=== PATIENT | male | born 2000 ===

== ENCOUNTER 2020-10-01 01:28 | Emergency (ER) | payer OTHER, SELFPAY ==
--- NOTE | ~2020-10-01 | XR_ITS ---
EXAMINATION: XR FOOT, RIGHT CLINICAL INFORMATION: Pain and swelling status post trauma COMPARISON: None TECHNIQUE: AP, lateral, and oblique views of the right foot. FINDINGS: No fracture or dislocation. Alignment is anatomic. Joint spaces are maintained. Mild soft tissue swelling of the forefoot. XR/XR foot RT min 3V IMPRESSION: Forefoot soft tissue swelling. No fracture or malalignment.
[2020-10-01 02:06] VITALS: BP 152/90; PULSE 87; RESP 18; TEMP 36.9; O2SAT 98; BMI 32.1
[2020-10-01 04:00] VITALS: BP 152/70; PULSE 72; RESP 18; O2SAT 98
--- NOTE | 2020-10-01 04:05 | ED.LOWEXIN ---
HPI - Extremity Injury (Lower) General Chief Complaint: Extremity Injury, Lower Stated Complaint: right foot injury Time Seen by Provider: 10/01/20 04:05 Source: patient Mode of arrival: ambulatory History of Present Illness HPI Narrative: 20-year-old male who states that he reported at package being dropped on his foot, approximately 60 lb on Friday and now reports increased pain with pressure standing as well as with walking. Related Data Allergies Allergy/AdvReac Type Severity Reaction Status Date / Time pollen extracts [POLLEN] Allergy Unknown UNKNOWN Verified 10/01/20 02:05 Review of Systems Review of Systems: pertinent positives and negatives as stated in the HPI and 10 point of systems is otherwise negative. [facility] Past Medical History Source: nursing notes reviewed Social History Social History Advance Directives: No Advance Directives Information Provided: No Physical Exam Vital Signs: Vital Signs: Last Vital Signs Temp 98.4 F 10/01/20 02:06 Pulse 72 10/01/20 04:00 Resp 18 10/01/20 04:00 BP 152/70 H 10/01/20 04:00 Pulse Ox 98 10/01/20 04:00 Body Mass Index 32.1 VITAL SIGNS: Reviewed. GENERAL: Well developed, well nourished, in no acute distress. HEAD: Normocephalic/atraumatic EYES: PERRLA, EOMI LUNGS: Normal breath sounds. No adventitious sounds or accessory muscle use. SpO2<98> CARDIOVASCULAR: Regular rate and rhythm without noted murmurs ABDOMEN: Soft, non-tender, non-distended with bowel sounds. RIGHT FOOT: There is noted soft tissue swelling to the dorsum of the right foot, capillary refill less 3 seconds, palpable DP/PT SKIN: Inspection of the skin reveals no rashes NEUROLOGIC: Alert and oriented x 4. Strength and sensation to light touch were grossly intact x 4. Course Course Course Narrative: 20-year-old male with history and clinical presentation consistent with contusion to the dorsum right hand on review of imaging evidence fracture or dislocation. Patient was provided with an Florentin wrap for compression and discharged home in stable condition with instructions to follow up with his primary care provider. Discharge Plan Discharge Clinical Impression: Contusion of foot, right Patient Disposition: Home, Self-Care Instructions: Contusion in Adults (ED) Additional Instructions: 1. 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 2. Recommend utilizing Tylenol and ibuprofen as needed for pain control. In addition, utilize ice for additional symptom relief. Return to the ER for acute worsening of symptoms. Referrals: Physician,Unknown [Primary Care Provider] - 2 days Interventions: ED Discharge Assessment Last Done: 10/01/20 04:16 Discharge Date/Time: 10/01/20 04:17
--- NOTE | 2020-10-01 04:07 | PC.NURSE ---
Right foot swelling/bruising noted. No fracture identified. Florentin wrap applied to right foot. Preparing for discharge home. Pt ambulating on foot with slight limp, but otherwise steady gait.
== END 2020-10-01 04:17 | disposition home or self-care (01) ==
PROVIDERS: Emergency Provider Student in an Organized Health Care Education/Training Program
DX: S90.31XA Contusion of right foot, initial encounter (principal); W20.8XXA Other cause of strike by thrown, projected or falling object, initial encounter; Y93.9 Activity, unspecified; Y92.9 Unspecified place or not applicable; Y99.9 Unspecified external cause status
CPT/HCPCS: 73630; 99283; 99284

== ENCOUNTER 2020-10-03 17:44 | Inpatient (IN) | payer OTHER, SELFPAY ==
--- NOTE | ~2020-10-03 | XR_ITS ---
EXAMINATION: XR FOOT, RIGHT CLINICAL INFORMATION: Crush injury with toe pain COMPARISON: None TECHNIQUE: AP, lateral, and oblique views of the right foot. FINDINGS: The bones and soft tissues are unremarkable. No definite fracture. Alignment is anatomic. Joint spaces are maintained. XR/XR foot RT min 3V IMPRESSION: No evidence of a traumatic osseous injury.
--- NOTE | ~2020-10-03 | CT_ITS ---
EXAMINATION: CT FOOT WITH CONTRAST, RIGHT CLINICAL INFORMATION: Pain and swelling COMPARISON: Radiograph from 10/03/2020 TECHNIQUE: Multidetector volumetric imaging of the right foot performed after administration of 85 mL of Omnipaque 350 IV contrast. Coronal and sagittal reformatted images are obtained and reviewed. This CT examination was performed using dose optimization techniques as appropriate, variously including the following: *Automated exposure control *Adjustment of mA and/or kV according to patient size (this includes techniques or standardized protocols for targeted exams where dose is matched to indication/reason for exam; i.e. extremities or head) *Use of iterative reconstruction technique DLP: 134 mGy-cm FINDINGS: There is no fracture. No dislocation. Anatomic alignment. Joint spaces are maintained. No osseous erosions. There is superficial soft tissue swelling, greatest at the dorsum of the midfoot. There is no fluid collection at this location. There is prominent fluid involving the dorsal aspect of the fourth digit, adjacent to the proximal phalanx. This measures 2.2 x 1.9 x 2.7 cm. This has superficial and deep components. No abnormality of the underlying bone. CT/CT foot RT w con IMPRESSION: No acute osseous abnormality. No osseous erosion. Dorsal fluid collection in the fourth digit at the level of the proximal phalanx.
[2020-10-03 19:12] VITALS: BP 125/78; PULSE 91; RESP 18; TEMP 36.6; O2SAT 98; BMI 33.1
[2020-10-03 20:14] VITALS: BP 150/87; PULSE 100; RESP 15; TEMP 35.8; O2SAT 100
--- NOTE | 2020-10-03 20:19 | ED.LOWEXIN ---
HPI - Extremity Injury (Lower) General Chief Complaint: Extremity Injury, Lower Stated Complaint: foot inj Time Seen by Provider: 10/03/20 23:11 Source: patient Mode of arrival: other ( Limping) Limitations: no limitations History of Present Illness HPI Narrative: 20-year-old male presents with pain, swelling, blister, and redness to the right lower extremity. Stated that he dropped a box on his foot while at work, and the pain and swelling has gradually increased to the point where he cannot wear shoes. He does report intermittent fevers and chills. He does not report any chest pain or pressure, palpitations, shortness of breath, shortness breath on exertion, abdominal pain, abdominal distention, dysuria, hematuria, nausea, vomiting, diarrhea, constipation, or any other concerning symptoms. MD complaint: foot injury Type of Injury: blunt Place: work Severity: severe Severity scale (1-10): 10 Relieving factors: nothing Exacerbating factors: weight bearing, movement and palpation Context: direct blow Associated symptoms: swelling and able to partially bear weight Treatments prior to arrival: cold therapy and NSAIDS Related Data Home Medications Medication Instructions Recorded Confirmed No Known Home Meds 10/04/20 10/04/20 Allergies Allergy/AdvReac Type Severity Reaction Status Date / Time No Known Allergies Allergy Verified 10/03/20 19:12 Review of Systems Review of Systems: Constitutional: No Fever, No Chills ENT/Mouth: No Ear Pain, No Hoarseness, No sore throat Eyes: No Eye Pain, No Swelling, No Redness, No Foreign Body Cardiovascular: No Chest Pain, No SOB Respiratory: No Cough, No Dyspnea Gastrointestinal: No Nausea, No Vomiting, No Diarrhea, No abdominal Pain Genitourinary: No Dysuria, No Hematuria Musculoskeletal: positive right foot pain, No Myalgias, positive right foot Swelling Skin: No Skin lacerations, No rash Neuro: No Weakness, No Numbness, No Paresthesias, No Loss of Consciousness, No Dizziness, No Headache Psych: No Anxiety/Panic, No Depression Heme/Lymph: no easy bruising, no Lymphadenopathy Endocrine: No Polyuria, No Polydipsia Yes all other systems are reviewed and are negative PMFSH Past Medical History Attestation statement: The following information was validated with the patient. Source: old records reviewed Medical History Patient denies medical problems Social History Social History Patient Tobacco Use Status: Never used Tobacco Use of substances other than those prescribed or required for medical reasons: Yes Substance Use Type: Marijuana Substance Use Frequency: Daily Advance Directives: No Advance Directives Information Provided: Yes Physical Exam Vital Signs: Vital Signs: Last Vital Signs Temp 96.4 F L 10/04/20 00:28 Pulse 113 H 10/04/20 00:28 Resp 15 10/04/20 00:28 BP 141/77 H 10/04/20 00:28 Pulse Ox 99 10/04/20 00:28 Body Mass Index 33.1 Appearance: Alert. Oriented X3. No acute distress. Eyes: Pupils equal, round and reactive to light. ENT: Pharynx normal. Neck: Normal inspection. Neck supple. CVS: Normal heart rate and rhythm. Pulses normal. Respiratory: No respiratory distress. Breath sounds normal. Abdomen: Soft and nontender. Skin: Skin warm and dry. Normal skin color. Normal skin turgor. Extremities: please refer to pictures Neuro: No motor deficit. No sensory deficit. Course Course Course Narrative: 20-year-old male presents with right foot pain and swelling with blister, area is warm, swollen, tender to palpation. Will order labs to rule out sepsis. Will start ceftriaxone and vancomycin with fluid resuscitation. Pain management with oxycodone. White count is 18.8, platelets 470, lactic 1.3, fluid resuscitation completed for ideal body weight, 2 L. discussion with hospitalist regarding admission. Consultations Consultation #1: caridad MDM - Extremity Injury (Lower) MDM Narrative Medical decision making narrative: Cellulitis, sepsis, osteomyelitis Differential Diagnosis Differential diagnosis: Likely puncture wound of foot and fracture of toe Medical Records Attestation: I reviewed the patient's medical records. Lab Data Attestation: I reviewed the patient's lab results. Result diagrams: 10/03/20 21:32 10/03/20 21:32 Labs: Lab Results 10/03/20 10/03/20 10/03/20 Range/Units 21:32 21:32 21:32 WBC 18.8 H (4.8-10.8) X10*3/uL RBC 5.51 (4.60-5.80) X10*6/uL Hgb 15.2 (14.0-18.0) g/dl Hct 47.1 (42-52) % MCV 85.5 (80-98) fL MCH 27.6 (27.0-33.0) pg MCHC 32.3 (31.0-36.0) g/dl RDW 12.7 (11.0-16.0) % Plt Count 470 H (160-400) X10*3/uL MPV 8.7 L (9.4-12.4) fL Immature Gran % (Auto) 0.5 H (0.0-0.4) % Neut % (Auto) 70.1 (45-73) % Lymph % (Auto) 20.2 (20-40) % [place] % (Auto) 5.8 (2-11) % Eos % (Auto) 3.1 (0-4) % Baso % (Auto) 0.3 (0-2) % Lymph # (Auto) 3.8 (1.2-4.9) X10*3/uL [place] # (Auto) 1.1 (0.1-1.2) X10*3/uL Eos # (Auto) 0.6 H (0.0-0.4) X10*3/uL Baso # (Auto) 0.1 (0.0-0.2) X10*3/uL Abs Immat Gran (auto) 0.10 H (0.00-0.03) X10*3/uL Absolute Neuts (auto) 13.2 H (2.0-8.3) X10*3/uL Absolute Nucleated RBC 0.000 (0.0-0.012) X10*3/uL Nucleated RBC % (auto) 0.0 (0.0-0.2) /100WBC Sodium 141 (135-145) mmol/L Potassium 4.5 (3.3-5.1) mmol/L Chloride 103 (96-108) mmol/L Carbon Dioxide 28 (22-29) mmol/L Anion Gap 15 (12-20) BUN 11 (9-16) mg/dL Creatinine 0.93 (0.5-1.4) mg/dL Estim Creat Clear Calc 125.3 Estimated GFR > 60 Random Glucose 113 (60-115) mg/dL Lactic Acid 1.3 (0.5-2.0) mmol/L Calcium 10.1 (8.4-10.2) mg/dL COVID-19 (TYRESE) (Negative) COVID-19 Clin Com 10/04/20 Range/Units 01:05 WBC (4.8-10.8) X10*3/uL RBC (4.60-5.80) X10*6/uL Hgb (14.0-18.0) g/dl Hct (42-52) % MCV (80-98) fL MCH (27.0-33.0) pg MCHC (31.0-36.0) g/dl RDW (11.0-16.0) % Plt Count (160-400) X10*3/uL MPV (9.4-12.4) fL Immature Gran % (Auto) (0.0-0.4) % Neut % (Auto) (45-73) % Lymph % (Auto) (20-40) % [place] % (Auto) (2-11) % Eos % (Auto) (0-4) % Baso % (Auto) (0-2) % Lymph # (Auto) (1.2-4.9) X10*3/uL [place] # (Auto) (0.1-1.2) X10*3/uL Eos # (Auto) (0.0-0.4) X10*3/uL Baso # (Auto) (0.0-0.2) X10*3/uL Abs Immat Gran (auto) (0.00-0.03) X10*3/uL Absolute Neuts (auto) (2.0-8.3) X10*3/uL Absolute Nucleated RBC (0.0-0.012) X10*3/uL Nucleated RBC % (auto) (0.0-0.2) /100WBC Sodium (135-145) mmol/L Potassium (3.3-5.1) mmol/L Chloride (96-108) mmol/L Carbon Dioxide (22-29) mmol/L Anion Gap (12-20) BUN (9-16) mg/dL Creatinine (0.5-1.4) mg/dL Estim Creat Clear Calc Estimated GFR Random Glucose (60-115) mg/dL Lactic Acid (0.5-2.0) mmol/L Calcium (8.4-10.2) mg/dL COVID-19 (TYRESE) Negative (Negative) COVID-19 Clin Com See Note Imaging Data foot x-ray: Attestation: I personally reviewed and interpreted this imaging study as follows: Radiologist's impression: EXAMINATION: XR FOOT, RIGHT CLINICAL INFORMATION: Crush injury with toe pain COMPARISON: None TECHNIQUE: AP, lateral, and oblique views of the right foot. FINDINGS: The bones and soft tissues are unremarkable. No definite fracture. Alignment is anatomic. Joint spaces are maintained. XR/XR foot RT min 3V IMPRESSION: No evidence of a traumatic osseous injury. CT of foot: Attestation: I personally reviewed and interpreted this imaging study as follows: Radiologist's impression: FINDINGS: There is no fracture. No dislocation. Anatomic alignment. Joint spaces are maintained. No osseous erosions. There is superficial soft tissue swelling, greatest at the dorsum of the midfoot. There is no fluid collection at this location. There is prominent fluid involving the dorsal aspect of the fourth digit, adjacent to the proximal phalanx. This measures 2.2 x 1.9 x 2.7 cm. This has superficial and deep components. No abnormality of the underlying bone. CT/CT foot RT w con IMPRESSION: No acute osseous abnormality. No osseous erosion. Dorsal fluid collection in the fourth digit at the level of the proximal phalanx. Discharge Plan Discharge Clinical Impression: Cellulitis of left foot Patient Disposition: Admitted As Inpatient
[2020-10-03] MEDS: 0.9 % Sodium Chloride 1,000 ML 999 ML IVCONT ×2 (21:05→22:30)
[2020-10-03] MEDS: oxyCODONE HCl Immed Release 5 MG TABLET PO (21:05)
[2020-10-03] MEDS: cefTRIAXone sodium 1 GM in 0.9 % Sodium Chloride 50 ML IV (21:05)
[2020-10-03 21:42] LABS: MANUAL DIFF FLAG NO
[2020-10-03 21:46] LABS: Basophils Absolute Auto 0.1 X10*3/uL (0.0-0.2); Basophils Percent Auto 0.3 % (0-2); Eosinophils Absolute Auto 0.6 X10*3/uL (0.0-0.4); Eosinophils Percent Auto 3.1 % (0-4); Hematocrit 47.1 % (42-52); Hemoglobin 15.2 g/dl (14.0-18.0); Imm Gran Pct Auto 0.5 % (0.0-0.4); Lymphocytes Absolute Auto 3.8 X10*3/uL (1.2-4.9); Lymphocytes Percent Auto 20.2 % (20-40); Mean Corpuscular HGB Conc 32.3 g/dl (31.0-36.0); Mean Corpuscular Hemoglobin 27.6 pg (27.0-33.0); Mean Corpuscular Volume 85.5 fL (80-98); Mean Platelet Volume 8.7 fL (9.4-12.4); Monocytes Absolute Auto 1.1 X10*3/uL (0.1-1.2); Monocytes Percent Auto 5.8 % (2-11); Neutrophils Absolute Auto 13.2 X10*3/uL (2.0-8.3); Neutrophils Percent Auto 70.1 % (45-73); Platelet Count 470 X10*3/uL (160-400); Red Blood Count 5.51 X10*6/uL (4.60-5.80); Red Cell Distribution Width 12.7 % (11.0-16.0); White Blood Count 18.8 X10*3/uL (4.8-10.8)
[2020-10-03 22:12] LABS: Lactic Acid 1.3 mmol/L (0.5-2.0)
[2020-10-03 22:15] LABS: Anion Gap 15 (12-20); Blood Urea Nitrogen 11 mg/dL (9-16); Calcium 10.1 mg/dL (8.4-10.2); Carbon Dioxide 28 mmol/L (22-29); Chloride 103 mmol/L (96-108); Creatinine Clr Calc Pharmacy 125.3; Estimated Glomerular Filt Rate > 60; Glucose Random 113 mg/dL (60-115); Potassium 4.5 mmol/L (3.3-5.1); Sodium 141 mmol/L (135-145)
[2020-10-03] MEDS: vancomycin HCL 1,250 MG in 0.9 % Sodium Chloride 250 ML 166.67 MG IV (22:29)
[2020-10-03 23:53] VITALS: BP 164/99; PULSE 111; RESP 15; TEMP 35.8; O2SAT 99
[2020-10-04] VITALS (7 sets, daily range): BP systolic 114–159; BP diastolic 67–87; PULSE 77–113; RESP 15–18; TEMP 35.8–37.3; O2SAT 96–100; BMI 35.0
--- NOTE | 2020-10-04 | P.HPHOSP_ITS ---
History of Present Illness Date of Service: 10/04/20 Chief Complaint: left foot pain and swelling 20-year-old male with no significant past medical history presented to the hospital with a chief complaint of left foot pain and swelling. Patient reported a week ago he dropped a box on his foot and subsequently noted to have swelling redness and pain which has been gradually worsening; complains of chills. Present to the ER for further evaluation. Denies any nausea vomiting diarrhea. Denies any cough. Denies any urinary symptoms. Review of all other systems is negative except mentioned above ER course: Per ER team patient noted to have left foot dorsum vomiting medicine swelling in noticed blisters on the fingers; CT of the foot was ordered. Patient was given IV antibiotics. Admitted for further management. [facility] Medical History Patient denies medical problems Social History Household Members: Family Housing: House Do you presently have visiting nurse or other home services: No Patient Tobacco Use Status: Never used Tobacco Second Hand Smoke Exposure: No Substance Use Type: Marijuana service: No Current occupational status: employed Meds Allergies Allergy/AdvReac Type Severity Reaction Status Date / Time No Known Allergies Allergy Verified 10/03/20 19:12 Active Medications: Current Medications Generic Name Dose Route Start Last Admin Trade Name Freq PRN Reason Stop Dose Admin Acetaminophen 650 mg 10/03/20 23:53 Acetaminophen 325 Mg Tablet PO Q6H PRN Pain, Mild (Pain Scale 1-3) Docusate Sodium 100 mg 10/04/20 09:00 Docusate Sodium 100 Mg Capsule PO BID [facility] Heparin Sodium (Porcine) 5,000 unit 10/03/20 23:45 Heparin Sodium,Porcine 5,000 Unit/Ml Vial SUBCUT Q8H [facility] Sodium Chloride 1,000 mls @ 100 mls/hr 10/03/20 23:45 Ns IVCONT .Q10H JUNIE Ibuprofen 400 mg 10/03/20 23:53 Ibuprofen 400 Mg Tablet PO Q6H PRN Breakthrough Pain Melatonin 3 mg 10/03/20 23:53 Melatonin 3 Mg Tablet PO BEDTIME PRN Insomnia Pharmacy Consult 1 each 10/03/20 23:47 Consult Rx Perform Med Rec MISCELLANE 10/03/20 23:48 ONCE STA Senna 17.2 mg 10/03/20 23:53 Sennosides 8.6 Mg Tablet PO BEDTIME PRN Constipation Sodium Chloride 3 ml 10/04/20 00:00 0.9 % Sodium Chloride Flush 3 Ml Syringe IVFLUSH QSHIFT JUNIE Physical Exam Vital Signs and Narrative: Vital Signs: Last Vital Signs Temp 96.4 F L 10/03/20 20:14 Pulse 100 10/03/20 20:14 Resp 15 10/03/20 20:14 BP 150/87 H 10/03/20 20:14 Pulse Ox 100 10/03/20 20:14 Body Mass Index 33.1 Gen: Appears be in no acute distress HEENT: NCAT, Moist mucosa. Pulmonary: Vesicular breath sounds, fair air entry CVS: Normal S1-S2 Abdomen: BS+, Soft, Nontender Extremities: Warm well perfused ; left foot is warm tender and swollen more so on the dorsum.; noted blackish blister -appears to have blood, also noted mild blood leak Neuro: Alert and awake. Results Labs CBC and Chem 7: 10/05/20 09:37 10/05/20 09:37 Labs: Laboratory Results - last 24 hr 10/03/20 10/03/20 10/03/20 21:32 21:32 21:32 MCV 85.5 MCH 27.6 MCHC 32.3 RDW 12.7 Plt Count 470 H MPV 8.7 L Immature Gran % (Auto) 0.5 H Neut % (Auto) 70.1 Lymph % (Auto) 20.2 [place] % (Auto) 5.8 Eos % (Auto) 3.1 Baso % (Auto) 0.3 Lymph # (Auto) 3.8 [place] # (Auto) 1.1 Eos # (Auto) 0.6 H Baso # (Auto) 0.1 Abs Immat Gran (auto) 0.10 H Absolute Neuts (auto) 13.2 H Absolute Nucleated RBC 0.000 Nucleated RBC % (auto) 0.0 Anion Gap 15 Estim Creat Clear Calc 125.3 Estimated GFR > 60 Random Glucose 113 Lactic Acid 1.3 Calcium 10.1 Imaging Radiologist's Impressions: Impressions Foot X-Ray 10/03/20 20:18 IMPRESSION: No evidence of a traumatic osseous injury. Assessment and Plan (1) Cellulitis of left foot: Status: Acute 20-year-old male with no significant past medical history presented to the hospital with a chief complaint of left foot pain redness and swelling. Not ed to have cellulitis. Admitted for further management. Left foot cellulitis: Continue IV vancomycin. black colored distant noticed on the dorsum of the foot; as per the pictures shown by the patient- the blister has been increasing in size general surgery consult CT of the foot pending. Pain control. hypertension: Patient's blood pressure is on the high side. Question pain related. Patient does report family history of high blood pressure. Will continue to monitor; if continued to be high even tomorrow -will defer to the a.m. team for further workup as needed Regular diet: DVT PPX:Subcu heparin Code status: Full code Quality Stroke Does the patient have a stroke diagnosis?: No VTE Prior VTE?: No VTE Risk Level:: Medical - low VTE Device Contraindication: Procedure Contraindicated VTE Drug Contraindication: N/A - Med Ordered
[2020-10-04] MEDS: iohexoL 350 MG/ML 100 ML INFUS..BTL 85 ML IV (00:20)
[2020-10-04] MEDS: 0.9 % Sodium Chloride 1,000 ML 100 ML IVCONT ×3 (00:41→19:53)
[2020-10-04] MEDS: diphenhydrAMINE HCL 50 MG/ML VIAL IVPUSH (00:41)
[2020-10-04] MEDS: Heparin Sodium,Porcine 5,000 UNIT/ML VIAL 5000 UNIT SUBCUT ×4 (00:41→23:47)
[2020-10-04 01:27] LABS: COVID-19 Test Negative (Negative); IDNOW Serial# 9DD0AD1C
[2020-10-04 06:32] LABS: MANUAL DIFF FLAG NO
[2020-10-04 06:49] LABS: Basophils Percent Auto 0.2 % (0-2); Eosinophils Absolute Auto 0.3 X10*3/uL (0.0-0.4); Eosinophils Percent Auto 1.3 % (0-4); Hematocrit 43.3 % (42-52); Hemoglobin 13.6 g/dl (14.0-18.0); Imm Gran Abs Auto 0.08 X10*3/uL (0.00-0.03); Imm Gran Pct Auto 0.4 % (0.0-0.4); Lymphocytes Absolute Auto 3.4 X10*3/uL (1.2-4.9); Lymphocytes Percent Auto 18.1 % (20-40); Mean Corpuscular HGB Conc 31.4 g/dl (31.0-36.0); Mean Corpuscular Hemoglobin 26.8 pg (27.0-33.0); Mean Corpuscular Volume 85.4 fL (80-98); Mean Platelet Volume 8.9 fL (9.4-12.4); Monocytes Percent Auto 5.4 % (2-11); Neutrophils Absolute Auto 14.1 X10*3/uL (2.0-8.3); Neutrophils Percent Auto 74.6 % (45-73); Platelet Count 430 X10*3/uL (160-400); Red Blood Count 5.07 X10*6/uL (4.60-5.80); Red Cell Distribution Width 12.9 % (11.0-16.0)
[2020-10-04 07:14] LABS: Anion Gap 12 (12-20); Blood Urea Nitrogen 11 mg/dL (9-16); Carbon Dioxide 24 mmol/L (22-29); Chloride 107 mmol/L (96-108); Creatinine Clr Calc Pharmacy 139.5; Estimated Glomerular Filt Rate > 60; Glucose Random 94 mg/dL (60-115); Potassium 4.4 mmol/L (3.3-5.1); Sodium 139 mmol/L (135-145)
[2020-10-04 07:29] LABS: Calcium 8.4 mg/dL (8.4-10.2)
--- NOTE | 2020-10-04 08:13 | HO.PM.IMPN ---
Subjective Subjective Date of Service: 10/04/20 Interval History: Seen in f/u for cellulitis of the foot due dropping an object on it Review of Systems Gen: no fever Resp: no sob, no cough CV: no chest, no NANCE, no leg edema GI: No n/v, no abd pain Neuro: No confusion foot pain Physical Exam Vital Signs: Vital Signs: Last Vital Signs Temp 99.1 F 10/04/20 07:16 Pulse 93 10/04/20 07:16 Resp 18 10/04/20 07:16 BP 126/74 10/04/20 07:16 Pulse Ox 96 10/04/20 07:16 Body Mass Index 35.0 Const: Other: General: AO X 3, no acute distress Resp: CTA bilateral CVS: S1,S2,RRR GI: +BS, NT, no distention Skin: right foot Neuro: motor grossly intact Psych: appropriate affect Objective Data Current Medications Generic Name Dose Route Start Last Admin Trade Name Freq PRN Reason Stop Dose Admin Acetaminophen 650 mg 10/03/20 23:53 Acetaminophen 325 Mg Tablet PO Q6H PRN Pain, Mild (Pain Scale 1-3) Docusate Sodium 100 mg 10/04/20 09:00 Docusate Sodium 100 Mg Capsule PO BID JUNIE Heparin Sodium (Porcine) 5,000 unit 10/03/20 23:45 10/04/20 00:41 Heparin Sodium,Porcine 5,000 Unit/Ml Vial SUBCUT 5,000 unit Q8H JUNIE Administration Sodium Chloride 1,000 mls @ 100 mls/hr 10/03/20 23:45 10/04/20 00:41 Ns IVCONT 100 mls/hr .Q10H JUNIE Administration Vancomycin HCl 1,250 mg/ 250 mls @ 166.667 mls/hr 10/04/20 11:00 Sodium Chloride IV Q12H JUNIE Ibuprofen 400 mg 10/03/20 23:53 Ibuprofen 400 Mg Tablet PO Q6H PRN Breakthrough Pain Melatonin 3 mg 10/03/20 23:53 Melatonin 3 Mg Tablet PO BEDTIME PRN Insomnia Pharmacy Consult 1 each 10/03/20 23:47 Consult Rx Perform Med Rec MISCELLANE 10/03/20 23:48 ONCE STA Pharmacy Consult 1 each 10/04/20 00:03 Consult Rx Vancomycin Dosing MISCELLANE DAILY PRN Consult order Senna 17.2 mg 10/03/20 23:53 Sennosides 8.6 Mg Tablet PO BEDTIME PRN Constipation Sodium Chloride 3 ml 10/04/20 00:00 10/04/20 00:40 0.9 % Sodium Chloride Flush 3 Ml Syringe IVFLUSH Not Given QSHIFT [facility] Labs CBC & Chem 7: 10/04/20 05:54 10/04/20 05:54 Labs: Laboratory Results - last 24 hr 10/03/20 10/03/20 10/03/20 21:32 21:32 21:32 WBC 18.8 H RBC 5.51 Hgb 15.2 Hct 47.1 MCV 85.5 MCH 27.6 MCHC 32.3 RDW 12.7 Plt Count 470 H MPV 8.7 L Immature Gran % (Auto) 0.5 H Neut % (Auto) 70.1 Lymph % (Auto) 20.2 [place] % (Auto) 5.8 Eos % (Auto) 3.1 Baso % (Auto) 0.3 Lymph # (Auto) 3.8 [place] # (Auto) 1.1 Eos # (Auto) 0.6 H Baso # (Auto) 0.1 Abs Immat Gran (auto) 0.10 H Absolute Neuts (auto) 13.2 H Absolute Nucleated RBC 0.000 Nucleated RBC % (auto) 0.0 Sodium 141 Potassium 4.5 Chloride 103 Carbon Dioxide 28 Anion Gap 15 BUN 11 Creatinine 0.93 Estim Creat Clear Calc 125.3 Estimated GFR > 60 Random Glucose 113 Lactic Acid 1.3 Calcium 10.1 COVID-19 ([facility]RESE) COVID-19 Clin Com 10/04/20 10/04/20 10/04/20 01:05 05:54 05:54 WBC 19.0 H RBC 5.07 Hgb 13.6 L Hct 43.3 MCV 85.4 MCH 26.8 L MCHC 31.4 RDW 12.9 Plt Count 430 H MPV 8.9 L Immature Gran % (Auto) 0.4 Neut % (Auto) 74.6 H Lymph % (Auto) 18.1 L [place] % (Auto) 5.4 Eos % (Auto) 1.3 Baso % (Auto) 0.2 Lymph # (Auto) 3.4 [place] # (Auto) 1.0 Eos # (Auto) 0.3 Baso # (Auto) 0.0 Abs Immat Gran (auto) 0.08 H Absolute Neuts (auto) 14.1 H Absolute Nucleated RBC 0.000 Nucleated RBC % (auto) 0.0 Sodium 139 Potassium 4.4 Chloride 107 Carbon Dioxide 24 Anion Gap 12 BUN 11 Creatinine 0.86 Estim Creat Clear Calc 139.5 Estimated GFR > 60 Random Glucose 94 Lactic Acid Calcium 8.4 D COVID-19 (TYRESE) Negative COVID-19 Clin Com See Note Imaging foot x-ray: Radiologist's impression: Impressions Foot X-Ray 10/03/20 20:18 IMPRESSION: No evidence of a traumatic osseous injury. Foot CT 10/04/20 00:01 IMPRESSION: No acute osseous abnormality. No osseous erosion. Dorsal fluid collection in the fourth digit at the level of the proximal phalanx. CT of foot: Radiologist's impression: Impressions Foot X-Ray 10/03/20 20:18 IMPRESSION: No evidence of a traumatic osseous injury. Foot CT 10/04/20 00:01 IMPRESSION: No acute osseous abnormality. No osseous erosion. Dorsal fluid collection in the fourth digit at the level of the proximal phalanx. Quality Stroke Does the patient have a stroke diagnosis?: No VTE Prior VTE?: No VTE Risk Level:: Medical - low VTE Device Contraindication: Procedure Contraindicated VTE Drug Contraindication: N/A - Med Ordered Assessment and Plan (1) Cellulitis of left foot: Status: Acute Assessment and Plan: 20-year-old male who dropped a heavy object on foot and has a blistter with cellulitis as shown in picuture Left foot cellulitis: xray, CT no osteo WBC is still very high -continue Vanco -ID and surgery consult -pain management Pain control. Elevated BP, presently BP is normal and high was likely pain related, No meds at this time. Regular diet: DVT PPX:Subcu heparin Code status: Full code
[2020-10-04] MEDS: Ibuprofen 400 MG TABLET PO ×2 (08:48→23:47)
--- NOTE | 2020-10-04 08:56 | MHC.CM.PN ---
PATIENT LIVES WITH FAMILY. HE IS INDEPENDENT WITH ALL ADLS. HE IS HOPING TO RETURN HOME WITH NO SERVICES. MOTHER WILL BE IN LATER TODAY AND DISCUSSION OF HCP DOCUMENTATION WILL TAKE PLACE. CASE MANAGEMENT FOLLOWING.
[2020-10-04] MEDS: vancomycin HCL 1,250 MG in 0.9 % Sodium Chloride 250 ML 166.67 MG IV ×2 (10:51→22:03)
--- NOTE | 2020-10-04 12:02 | P.CONGS_ITS ---
History of Present Illness Consult details Consult date: 10/04/20 Requesting physician: Momo Russell Narrative: 20 year old male presenting with a right foot injury which occurred one week ago after dropping an [employer] box on the foot. This resulted in an area of swelling between the 4th and 5th toes. 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 He reports many bugs in the warehouse is uncertain if this were bug bite or other injury. Over the ensuing days the area of swelling in the right foot increased and was associated with redness in the foot. He presents to the emergency department for further evaluation and was subsequently admitted to the hospitalist service for for cellulitis. He reports mainly pain in the foot and calf but denies fever, chills, nausea, vomiting, or other associated symptoms. Laboratories today revealed WBC of 19.0. CT of the right foot revealed no acute osseous abnormality or ocean. A dorsal fluid collection in the 4th digit at the level of the proximal phalanx was identified. Review of Systems Review of Systems: Yes all other systems are reviewed and are negative Constitutional: Constitutional: Denies anorexia, Denies chills, Denies fever(s), Denies weakness and Denies weight loss Cardiovascular: Cardiovascular: Denies chest pain, Denies irregular heart rhythm and Denies dyspnea Respiratory: Respiratory: Denies chest congestion, Denies cough and Denies dyspnea Gastrointestinal: Gastrointestinal: Reports no additional gastrointestinal complaints Musculoskeletal: Musculoskeletal: Reports as per HPI Neurologic: Denies weakness Hematologic/Lymphatic: Hematologic/Lymphatic: Denies easy bruising and Denies lymphadenopathy PMFSH Past Medical History Medical History Patient denies medical problems Social History Social History Household Members: Family Housing: House Do you presently have visiting nurse or other home services: No Patient Tobacco Use Status: Never used Tobacco Smoked in Last 30 Days: No Second Hand Smoke Exposure: No Use of substances other than those prescribed or required for medical reasons: Yes Substance Use Type: Marijuana Substance Use Frequency: Weekly Last Used Substance Other:: USE VARIES PER PT Currently Displaying Signs/Symptoms of Drug Intoxication Withdrawal: No Any prior treatment program specific to substance use: No Have you been hit, kicked, punched, or otherwise hurt by someone within the past year? If so, by whom?: No Do you feel safe in your current relationship?: No Current Relationship Is there a partner from a previous relationship who is making you feel unsafe now?: No Are you made to feel afraid or neglected: No Advance Directives: No Advance Directives Information Provided: Yes Do you have thoughts of harming others: None Do you have a plan to hurt others: No Plan Recently lost weight without trying: No Eating poorly because of decreased appetite: No Nutrition Risks: No Nutritional Risk Poor oral hygiene: No service: No Current occupational status: employed Meds Allergies Allergy/AdvReac Type Severity Reaction Status Date / Time No Known Allergies Allergy Verified 10/03/20 19:12 Active Medications: Current Medications Generic Name Dose Route Start Last Admin Trade Name Freq PRN Reason Stop Dose Admin Acetaminophen 650 mg 10/03/20 23:53 Acetaminophen 325 Mg Tablet PO Q6H PRN Pain, Mild (Pain Scale 1-3) Docusate Sodium 100 mg 10/04/20 09:00 10/04/20 08:55 Docusate Sodium 100 Mg Capsule PO Not Given BID JUNIE Heparin Sodium (Porcine) 5,000 unit 10/03/20 23:45 10/04/20 08:55 Heparin Sodium,Porcine 5,000 Unit/Ml Vial SUBCUT 5,000 unit Q8H JUNIE Administration Sodium Chloride 1,000 mls @ 100 mls/hr 10/03/20 23:45 10/04/20 08:59 Ns IVCONT 100 mls/hr .Q10H JUNIE Administration Vancomycin HCl 1,250 mg/ 250 mls @ 166.667 mls/hr 10/04/20 11:00 10/04/20 10:51 Sodium Chloride IV 166.67 mls/hr Q12H JUNIE Administration Ibuprofen 400 mg 10/03/20 23:53 10/04/20 08:48 Ibuprofen 400 Mg Tablet PO 400 mg Q6H PRN Administration Breakthrough Pain Melatonin 3 mg 10/03/20 23:53 Melatonin 3 Mg Tablet PO BEDTIME PRN Insomnia Pharmacy Consult 1 each 10/04/20 00:03 Consult Rx Vancomycin Dosing MISCELLANE DAILY PRN Consult order Senna 17.2 mg 10/03/20 23:53 Sennosides 8.6 Mg Tablet PO BEDTIME PRN Constipation Sodium Chloride 3 ml 10/04/20 00:00 10/04/20 10:13 0.9 % Sodium Chloride Flush 3 Ml Syringe IVFLUSH Not Given QSHIFT [facility] Home Medications Medication Instructions Recorded Confirmed Last Taken Type No Known Home Meds 10/04/20 10/04/20 Unknown History Physical Exam Vital Signs: Vital Signs: Last Vital Signs Temp 98.0 F 10/04/20 11:23 Pulse 92 10/04/20 11:23 Resp 18 10/04/20 11:23 BP 114/81 10/04/20 11:23 Pulse Ox 97 10/04/20 11:23 Body Mass Index 35.0 Const: General: no acute distress and well developed Nutritional Appearance : well nourished Orientation/consciousness: patient oriented x3 Limitations: no limitations HENMT: Head: Yes normocephalic and Yes atraumatic Ears: hearing grossly normal bilaterally Resp: Effort & Inspection: normal respiratory effort Auscultation: clear to auscultation bilaterally GI: Inspection: Yes normal to inspection Skin: General skin exam: no rashes or lesions noted Neuro: General: patient oriented x3 Extrem: Other: Right foot with a blistered area in the webspace between the 4th and 5th toes with a bluish discoloration. There is some mild erythema extending up the dorsum of the foot. This is mildly tender to palpation but nonfluctuant. Findings are suggestive of infected hematoma. In the right calf lateral surface is noted 2 areas of apparent folliculitis with surrounding erythema. The area is firm /inflamed but non fluctuant. Two pustules are noted at the hair follicles suggestive of an insect bite. Results Labs Result diagrams: 10/04/20 05:54 10/04/20 05:54 Labs: Abnormal lab results 10/03/20 10/04/20 Range/Units 21:32 05:54 WBC 18.8 H 19.0 H (4.8-10.8) X10*3/uL Hgb 13.6 L (14.0-18.0) g/dl MCH 26.8 L (27.0-33.0) pg Plt Count 470 H 430 H (160-400) X10*3/uL MPV 8.7 L 8.9 L (9.4-12.4) fL Immature Gran % (Auto) 0.5 H (0.0-0.4) % Neut % (Auto) 74.6 H (45-73) % Lymph % (Auto) 18.1 L (20-40) % Eos # (Auto) 0.6 H (0.0-0.4) X10*3/uL Abs Immat Gran (auto) 0.10 H 0.08 H (0.00-0.03) X10*3/uL Absolute Neuts (auto) 13.2 H 14.1 H (2.0-8.3) X10*3/uL Short CBC 10/03/20 10/04/20 Range/Units 21:32 05:54 WBC 18.8 H 19.0 H (4.8-10.8) X10*3/uL Hgb 15.2 13.6 L (14.0-18.0) g/dl Hct 47.1 43.3 (42-52) % Plt Count 470 H 430 H (160-400) X10*3/uL BMP 10/03/20 10/04/20 21:32 05:54 Sodium 141 139 Potassium 4.5 4.4 Chloride 103 107 Carbon Dioxide 28 24 BUN 11 11 Creatinine 0.93 0.86 Calcium 10.1 8.4 D All other labs normal. Assessment and Plan (1) Abscess of right foot including toes: Status: Acute 20-year-old male patient with injury to the right foot after dropping a box on the toes. This resulted in a hematoma / blister within the dermis /epidermis which may have secondarily become infected. There is also an area of folliculitis or insect bite and the lateral right calf which appears unrelated to the foot injury. I recommended drainage of the hematoma with possible culture of the fluid if infected. After discussion of the options I recommended a needle aspiration. The patient is agreeable to this and consents to the pro cedure. This produced a bloody collection which was apparently infected. Culture of the fluid was sent. The wounds were dressed with fluff gauze and Cory wrap. He tolerated the procedure well. The overlying dressings can be changed as needed. Procedures Date of Service Date of Service: 10/04/20 Abscess I/D Consent for Procedure: Elective - informed consent obtained Site: foot Side (if applicable): right Technique: needle aspiration Irrigation: No Packing used?: none Additional comments: Preoperative diagnosis: Abscess right foot Postoperative diagnosis: Same Procedure: Aspiration of infected hematoma right foot Local: None Estimated blood loss: None Complications: None Procedure details: After confirming the site of the procedure and assuring informed consent the patient's right foot between the 4th and 5th toes was prepped with Betadine and draped in a sterile fashion. No local was required for this procedure. An 18 gauge needle attached to a 10 cc syringe was introduced into the hematoma /abscess. Immediate orr of chocolate-colored fluid with white tinge was aspirated. A portion of this was sent for wound culture. The hematoma was completely drained and the foot dressed with fluff gauze followed by Cory dressing. Patient tolerated the procedure well.
--- NOTE | 2020-10-04 13:39 | P.CNID_ITS ---
History of Present Illness Data of Consult Service Date: 10/04/20 Requesting physician: Momo Russell Primary Care Provider: Jose Physician HPI Reason for consult: leukocytosis He presents with pain right foot after dropping heavy object on it one week ago He has no fever or chills but leukocytosis He has right foot abscess 2.2 x 1.9 x 2.7 cm and has dressing ,drainage Review of Systems Review of Systems: Yes all other systems are reviewed and are negative PMFSH Past Medical History Medical History Patient denies medical problems Family History Family history: reviewed and not pertinent Social History Social History Household Members: Family Housing: House Do you presently have visiting nurse or other home services: No Patient Tobacco Use Status: Never used Tobacco Smoked in Last 30 Days: No Second Hand Smoke Exposure: No Use of substances other than those prescribed or required for medical reasons: Yes Substance Use Type: Marijuana Substance Use Frequency: Weekly Last Used Substance Other:: USE VARIES PER PT Currently Displaying Signs/Symptoms of Drug Intoxication Withdrawal: No Any prior treatment program specific to substance use: No Have you been hit, kicked, punched, or otherwise hurt by someone within the past year? If so, by whom?: No Do you feel safe in your current relationship?: No Current Relationship Is there a partner from a previous relationship who is making you feel unsafe now?: No Are you made to feel afraid or neglected: No Advance Directives: No Advance Directives Information Provided: Yes Do you have thoughts of harming others: None Do you have a plan to hurt others: No Plan Recently lost weight without trying: No Eating poorly because of decreased appetite: No Nutrition Risks: No Nutritional Risk Poor oral hygiene: No service: No Current occupational status: employed Meds Allergies Allergy/AdvReac Type Severity Reaction Status Date / Time No Known Allergies Allergy Verified 10/03/20 19:12 Active Medications: Current Medications Generic Name Dose Route Start Last Admin Trade Name Freq PRN Reason Stop Dose Admin Acetaminophen 650 mg 10/03/20 23:53 Acetaminophen 325 Mg Tablet PO Q6H PRN Pain, Mild (Pain Scale 1-3) Docusate Sodium 100 mg 10/04/20 09:00 10/04/20 08:55 Docusate Sodium 100 Mg Capsule PO Not Given BID JUNIE Heparin Sodium (Porcine) 5,000 unit 10/03/20 23:45 10/04/20 08:55 Heparin Sodium,Porcine 5,000 Unit/Ml Vial SUBCUT 5,000 unit Q8H JUNIE Administration Sodium Chloride 1,000 mls @ 100 mls/hr 10/03/20 23:45 10/04/20 08:59 Ns IVCONT 100 mls/hr .Q10H JUNIE Administration Vancomycin HCl 1,250 mg/ 250 mls @ 166.667 mls/hr 10/04/20 11:00 10/04/20 12:40 Sodium Chloride IV Infused Q12H [facility] Infusion Piperacillin Sod/Tazobactam 50 mls @ 100 mls/hr 10/04/20 13:45 Sod 3.375 gm/ Sodium Chloride IV Q6H JUNIE Ibuprofen 400 mg 10/03/20 23:53 10/04/20 08:48 Ibuprofen 400 Mg Tablet PO 400 mg Q6H PRN Administration Breakthrough Pain Melatonin 3 mg 10/03/20 23:53 Melatonin 3 Mg Tablet PO BEDTIME PRN Insomnia Pharmacy Consult 1 each 10/04/20 00:03 Consult Rx Vancomycin Dosing MISCELLANE DAILY PRN Consult order Senna 17.2 mg 10/03/20 23:53 Sennosides 8.6 Mg Tablet PO BEDTIME PRN Constipation Sodium Chloride 3 ml 10/04/20 00:00 10/04/20 10:13 0.9 % Sodium Chloride Flush 3 Ml Syringe IVFLUSH Not Given QSHIFT [facility] Home Medications Medication Instructions Recorded Confirmed Last Taken Type No Known Home Meds 10/04/20 10/04/20 Unknown History Physical Exam Vital Signs: Vital Signs: Last Vital Signs Temp 98.0 F 10/04/20 11:23 Pulse 92 10/04/20 11:23 Resp 18 10/04/20 11:23 BP 114/81 10/04/20 11:23 Pulse Ox 97 10/04/20 11:23 Body Mass Index 35.0 Const: General: cooperative HENMT: Head: Yes normal to inspection Mouth: Normal oral and palatal mucosa present Resp: Effort & Inspection: normal respiratory effort Cardio: Rate: regular rate Rhythm: regular rhythm GI: Palpation (GI): Soft to palpation and nontender Skin: General skin exam: no rashes or lesions noted Extrem: Other: right foot blue area swelling between fourth and fifth toe Results Labs CBC & Chem 7: 10/04/20 05:54 10/04/20 05:54 Labs: Short CBC 10/03/20 10/04/20 Range/Units 21:32 05:54 WBC 18.8 H 19.0 H (4.8-10.8) X10*3/uL Hgb 15.2 13.6 L (14.0-18.0) g/dl Hct 47.1 43.3 (42-52) % Plt Count 470 H 430 H (160-400) X10*3/uL BMP 10/03/20 10/04/20 21:32 05:54 Sodium 141 139 Potassium 4.5 4.4 Chloride 103 107 Carbon Dioxide 28 24 BUN 11 11 Creatinine 0.93 0.86 Calcium 10.1 8.4 D Assessment and Plan (1) Abscess of right foot including toes: Status: Acute He has had possible MRSA as well as gram negative organisms Leukocytosis has improved only slightly He is on Vancomycin Would add Zosyn Cover gram negative/others Po Augmentin and Doxycycline for a week when WBC is 12,000 or less and abscess not needing further drainage. (2) Cellulitis of left foot: Status: Acute
[2020-10-04] MEDS: Piperacillin Sodium/Tazobactam 3.375 GM in 0.9 % Sodium Chloride 50 ML IV ×2 (14:41→20:05)
[2020-10-04] MEDS: Docusate Sodium 100 MG CAPSULE PO (19:54)
[2020-10-04] MEDS: Melatonin 3 MG TABLET PO (22:07)
[2020-10-05] MEDS: Piperacillin Sodium/Tazobactam 3.375 GM in 0.9 % Sodium Chloride 50 ML IV ×4 (02:06→20:23)
[2020-10-05 03:55] VITALS: BP 116/61; PULSE 65; RESP 16; TEMP 36.1; O2SAT 97
[2020-10-05] MEDS: 0.9 % Sodium Chloride 1,000 ML 100 ML IVCONT ×3 (05:46→23:59)
[2020-10-05 07:53] VITALS: BP 107/56; PULSE 73; RESP 17; TEMP 36.2; O2SAT 98
[2020-10-05] MEDS: Heparin Sodium,Porcine 5,000 UNIT/ML VIAL 5000 UNIT SUBCUT ×2 (08:17→16:22)
[2020-10-05] MEDS: Docusate Sodium 100 MG CAPSULE PO ×2 (08:18→20:23)
--- NOTE | 2020-10-05 09:06 | HO.PM.IMPN ---
Subjective Subjective Date of Service: 10/05/20 Interval History: Seen in f/u for cellulitis of the foot with infected hematoma Review of Systems Gen: no fever Resp: no sob, no cough CV: no chest, no NANCE, no leg edema GI: No n/v, no abd pain Neuro: No confusion foot pain Physical Exam Vital Signs: Vital Signs: Last Vital Signs Temp 97.2 F 10/05/20 07:53 Pulse 73 10/05/20 07:53 Resp 17 10/05/20 07:53 BP 107/56 L 10/05/20 07:53 Pulse Ox 98 10/05/20 07:53 Body Mass Index 35.0 Const: Other: General: AO X 3, no acute distress Resp: CTA bilateral CVS: S1,S2,RRR GI: +BS, NT, no distention Skin: right foot 10/04 10/05 Neuro: motor grossly intact Psych: appropriate affect Objective Data Current Medications Generic Name Dose Route Start Last Admin Trade Name Freq PRN Reason Stop Dose Admin Acetaminophen 650 mg 10/03/20 23:53 Acetaminophen 325 Mg Tablet PO Q6H PRN Pain, Mild (Pain Scale 1-3) Docusate Sodium 100 mg 10/04/20 09:00 10/05/20 08:18 Docusate Sodium 100 Mg Capsule PO 100 mg BID JUNIE Administration Heparin Sodium (Porcine) 5,000 unit 10/03/20 23:45 10/05/20 08:17 Heparin Sodium,Porcine 5,000 Unit/Ml Vial SUBCUT 5,000 unit Q8H JUNIE Administration Sodium Chloride 1,000 mls @ 100 mls/hr 10/03/20 23:45 10/05/20 05:46 Ns IVCONT 100 mls/hr .Q10H JUNIE Administration Vancomycin HCl 1,250 mg/ 250 mls @ 166.667 mls/hr 10/04/20 11:00 10/05/20 00:19 Sodium Chloride IV Infused Q12H JUNIE Infusion Piperacillin Sod/Tazobactam 50 mls @ 100 mls/hr 10/04/20 14:00 10/05/20 08:52 Sod 3.375 gm/ Sodium Chloride IV Infused Q6H JUNIE Infusion Ibuprofen 400 mg 10/03/20 23:53 10/04/20 23:47 Ibuprofen 400 Mg Tablet PO 400 mg Q6H PRN Administration Breakthrough Pain Melatonin 3 mg 10/03/20 23:53 10/04/20 22:07 Melatonin 3 Mg Tablet PO 3 mg BEDTIME PRN Administration Insomnia Pharmacy Consult 1 each 10/04/20 00:03 Consult Rx Vancomycin Dosing MISCELLANE DAILY PRN Consult order Senna 17.2 mg 10/03/20 23:53 Sennosides 8.6 Mg Tablet PO BEDTIME PRN Constipation Sodium Chloride 3 ml 10/04/20 00:00 10/05/20 07:18 0.9 % Sodium Chloride Flush 3 Ml Syringe IVFLUSH Not Given QSHIFT JUNIE Labs CBC & Chem 7: 10/04/20 05:54 10/04/20 05:54 Microbiology Microbiology Results: Microbiology 10/04/20 11:50 Gram Stain - Final Foot Right Routine Culture - Preliminary Staphylococcus aureus 10/03/20 22:04 Blood Culture - Preliminary Blood - Venous No growth after 24 hours. 10/03/20 21:32 Blood Culture - Preliminary Blood - Venous No growth after 24 hours. Quality Stroke Does the patient have a stroke diagnosis?: No VTE Prior VTE?: No VTE Risk Level:: Medical - low VTE Device Contraindication: Procedure Contraindicated VTE Drug Contraindication: N/A - Med Ordered Assessment and Plan (1) Cellulitis of left foot: Status: Acute Assessment and Plan: 20-year-old male who dropped a heavy object on foot and has a blistter with cellulitis as shown in picuture Left foot cellulitis Infected hematoma of the right foot--from object dropping on it xray, CT no osteo WBC has been high and penind today Wound culture = [place], no sensitivity yet -ID suggestin Zosyn and Vanco for now -an infected hematoma was I and D by Dr. Trimble 10/04 -Will change to PO Doxy when WBC is better Elevated BP, presently BP is normal and high was likely pain related, No meds at this time. Regular diet: DVT PPX:Subcu heparin Code status: Full code
[2020-10-05 10:12] LABS: Hematocrit 46.1 % (42-52); Hemoglobin 14.6 g/dl (14.0-18.0); Mean Corpuscular HGB Conc 31.7 g/dl (31.0-36.0); Mean Corpuscular Hemoglobin 27.3 pg (27.0-33.0); Mean Corpuscular Volume 86.2 fL (80-98); Mean Platelet Volume 8.5 fL (9.4-12.4); Platelet Count 403 X10*3/uL (160-400); Red Blood Count 5.35 X10*6/uL (4.60-5.80); Red Cell Distribution Width 12.8 % (11.0-16.0); White Blood Count 12.7 X10*3/uL (4.8-10.8)
--- NOTE | 2020-10-05 10:34 | PM.PNGS ---
Subjective Subjective Date of Service: 10/05/20 Interval history: patient reports mild improvement in his foot pain denies any new symptoms. Physical Exam Vital Signs: Vital Signs: Last Vital Signs Temp 97.2 F 10/05/20 07:53 Pulse 73 10/05/20 07:53 Resp 17 10/05/20 07:53 BP 107/56 L 10/05/20 07:53 Pulse Ox 98 10/05/20 07:53 Body Mass Index 35.0 Const: General: healthy appearing, comfortable and no acute distress Resp: Effort & Inspection: normal respiratory effort Skin: General skin exam: no rashes or lesions noted Extrem: Other: Right foot wounds examined, continued discharge from needle aspiration site. Decreased erythema noted. [place] dressing now applied to the calf lesion. Progress Note: A&P Assessment and plan (1) Abscess of right foot including toes: Status: Acute Assessment and Plan: patient is improving following drainage of an abscess of the right foot. WBC is improved following this procedure. Wound cultures indicates Staph aureus, final identification pending. Patient currently on vancomycin and Zosyn. Will continue to monitor patient's wound healing and culture results. Fall Risk Details Current Medications: Current Medications Generic Name Dose Route Start Last Admin Trade Name Freq PRN Reason Stop Dose Admin Acetaminophen 650 mg 10/03/20 23:53 Acetaminophen 325 Mg Tablet PO Q6H PRN Pain, Mild (Pain Scale 1-3) Docusate Sodium 100 mg 10/04/20 09:00 10/05/20 08:18 Docusate Sodium 100 Mg Capsule PO 100 mg BID JUNIE Administration Heparin Sodium (Porcine) 5,000 unit 10/03/20 23:45 10/05/20 08:17 Heparin Sodium,Porcine 5,000 Unit/Ml Vial SUBCUT 5,000 unit Q8H JUNIE Administration Sodium Chloride 1,000 mls @ 100 mls/hr 10/03/20 23:45 10/05/20 05:46 Ns IVCONT 100 mls/hr .Q10H JUNIE Administration Vancomycin HCl 1,250 mg/ 250 mls @ 166.667 mls/hr 10/04/20 11:00 10/05/20 00:19 Sodium Chloride IV Infused Q12H J[facility]IE Infusion Piperacillin Sod/Tazobactam 50 mls @ 100 mls/hr 10/04/20 14:00 10/05/20 08:52 Sod 3.375 gm/ Sodium Chloride IV Infused Q6H [facility] Infusion Ibuprofen 400 mg 10/03/20 23:53 10/04/20 23:47 Ibuprofen 400 Mg Tablet PO 400 mg Q6H PRN Administration Breakthrough Pain Melatonin 3 mg 10/03/20 23:53 10/04/20 22:07 Melatonin 3 Mg Tablet PO 3 mg BEDTIME PRN Administration Insomnia Pharmacy Consult 1 each 10/04/20 00:03 Consult Rx Vancomycin Dosing MISCELLANE DAILY PRN Consult order Senna 17.2 mg 10/03/20 23:53 Sennosides 8.6 Mg Tablet PO BEDTIME PRN Constipation Sodium Chloride 3 ml 10/04/20 00:00 10/05/20 07:18 0.9 % Sodium Chloride Flush 3 Ml Syringe IVFLUSH Not Given QSHIFT JUNIE Time Spent With Patient Time: Total time spent is greater than 50% in coordination of care (as documented) at patient's floor/unit and/or counseling patient: Time with patient: 15 - 24 minutes Procedures Date of Service Date of Service: 10/05/20 Quality Stroke Does the patient have a stroke diagnosis?: No VTE Prior VTE?: No VTE Risk Level:: Medical - low VTE Device Contraindication: Procedure Contraindicated VTE Drug Contraindication: N/A - Med Ordered Results Laboratory Findings Labs: Laboratory Results - last 24 hr 10/05/20 09:37 WBC 12.7 H RBC 5.35 Hgb 14.6 Hct 46.1 MCV 86.2 MCH 27.3 MCHC 31.7 RDW 12.8 Plt Count 403 H MPV 8.5 L Absolute Nucleated RBC 0.000 Nucleated RBC % (auto) 0.0
[2020-10-05 10:46] LABS: Anion Gap 11 (12-20); Blood Urea Nitrogen 11 mg/dL (9-16); Calcium 9.1 mg/dL (8.4-10.2); Carbon Dioxide 31 mmol/L (22-29); Chloride 102 mmol/L (96-108); Creatinine Clr Calc Pharmacy 137.9; Estimated Glomerular Filt Rate > 60; Glucose Random 125 mg/dL (60-115); Potassium 4.3 mmol/L (3.3-5.1); Sodium 140 mmol/L (135-145); Vancomycin Trough 7.5 mcg/mL (10.0-20.0)
[2020-10-05] MEDS: vancomycin HCL 1,500 MG in 0.9 % Sodium Chloride 500 ML 333.33 MG IV (11:09)
[2020-10-05 11:18] VITALS: BP 137/80; PULSE 78; RESP 16; TEMP 36.6; O2SAT 99
[2020-10-05 15:43] VITALS: BP 131/81; PULSE 95; RESP 15; TEMP 36.7; O2SAT 97
[2020-10-05 19:24] VITALS: BP 123/67; PULSE 98; RESP 14; TEMP 36.9; O2SAT 97
[2020-10-05 23:37] VITALS: BP 131/77; PULSE 94; RESP 16; TEMP 36.6; O2SAT 98
[2020-10-06] MEDS: Ibuprofen 400 MG TABLET PO
[2020-10-06] MEDS: 0.9 % Sodium Chloride Flush 3 ML SYRINGE IVFLUSH
[2020-10-06] MEDS: vancomycin HCL 1,500 MG in 0.9 % Sodium Chloride 500 ML 333.33 MG IV ×2 (00:01→11:13)
[2020-10-06] MEDS: Piperacillin Sodium/Tazobactam 3.375 GM in 0.9 % Sodium Chloride 50 ML IV ×4 (02:16→21:10)
[2020-10-06 04:00] VITALS: BP 104/58; PULSE 63; RESP 16; TEMP 36.3; O2SAT 97
[2020-10-06 07:32] VITALS: BP 116/57; PULSE 80; RESP 18; TEMP 36.4; O2SAT 97
--- NOTE | 2020-10-06 07:57 | PM.PNGS ---
Subjective Subjective Date of Service: 10/06/20 Interval history: Patient reports no pain in the right foot or calf. No new complaints Physical Exam Vital Signs: Vital Signs: Last Vital Signs Temp 97.6 F 10/06/20 07:32 Pulse 80 10/06/20 07:32 Resp 18 10/06/20 07:32 BP 116/57 L 10/06/20 07:32 Pulse Ox 97 10/06/20 07:32 Body Mass Index 35.0 Const: General: no acute distress, alert and awake Nutritional Appearance: well nourished Orientation/consciousness: patient oriented x3 Resp: Effort & Inspection: normal respiratory effort Neuro: General: patient oriented x3 Extrem: Other: right foot with a bullous lesion between the 4th and 5th toes containing blood and necrotic tissue. Devitalized skin was excised along with necrotic subcutaneous tissue. 2 x 2 cm epidermis in necrotic subcutaneous tissue was excised using scissors. Base of the wound appeared viable. A deeper wound is noted which appears traumatic in nature. Wounds were covered with dura fiber Ag and dry sterile dressings. Pre Debridement: Post debridement: Right calf wound has co last into a larger bullous lesion measuring 2.5 by 1.5 cm. This bullous necrotic skin was excised to reveal viable dermis with no deeper component. This was covered with dura fiber Ag and dry sterile dressings. Progress Note: A&P Assessment and plan (1) Abscess of right foot including toes: Status: Acute Assessment and Plan: Traumatic injury to right foot resulting in an infected hematoma between the webspace of the 4th and 5th toes. Nonviable tissue excised today with the scissors down to viable tissue. A deeper wound is identified extending to the proximal phalanx. No underlying abscess could be identified. No other necrotic tissue is noted. Wound was covered with silver calcium alginate. In addition the lesion on his lateral calf has enlarged to a bullous lesion with overlying necrotic tissue which was excised with the scissors. Debrided tissue measured 2.5 x 1.5 cm. Underlying tissue appeared viable. This was covered with silver calcium alginate as well followed by dry sterile dressings. Preliminary cultures revealed Staph aureus; sensitivities are pending. Patient on Zosyn and Vanco. Fall Risk Details Current Medications: Current Medications Generic Name Dose Route Start Last Admin Trade Name Freq PRN Reason Stop Dose Admin Acetaminophen 650 mg 07/06/21 23:53 Acetaminophen 325 Mg Tablet PO Q6H PRN Pain, Mild (Pain Scale 1-3) Docusate Sodium 100 mg 10/04/20 09:00 10/05/20 20:23 Docusate Sodium 100 Mg Capsule PO 100 mg BID JUNIE Administration Heparin Sodium (Porcine) 5,000 unit 10/03/20 23:45 10/06/20 00:00 Heparin Sodium,Porcine 5,000 Unit/Ml Vial SUBCUT 5,000 unit Q8H JUNIE Administration Sodium Chloride 1,000 mls @ 100 mls/hr 10/03/20 23:45 10/05/20 23:59 Ns IVCONT 100 mls/hr .Q10H JUNIE Administration Piperacillin Sod/Tazobactam 50 mls @ 100 mls/hr 10/04/20 14:00 10/06/20 03:01 Sod 3.375 gm/ Sodium Chloride IV Infused Q6H JUNIE Infusion Vancomycin HCl 1,500 mg/ 500 mls @ 333.333 mls/hr 10/05/20 11:00 10/06/20 02:04 Sodium Chloride IV Infused Q12H JUNIE Infusion Ibuprofen 400 mg 10/03/20 23:53 10/06/20 00:00 Ibuprofen 400 Mg Tablet PO 400 mg Q6H PRN Administration Breakthrough Pain Melatonin 3 mg 10/03/20 23:53 10/04/20 22:07 Melatonin 3 Mg Tablet PO 3 mg BEDTIME PRN Administration Insomnia Pharmacy Consult 1 each 10/04/20 00:03 Consult Rx Vancomycin Dosing MISCELLANE DAILY PRN Consult order Senna 17.2 mg 10/03/20 23:53 Sennosides 8.6 Mg Tablet PO BEDTIME PRN Constipation Sodium Chloride 3 ml 10/04/20 00:00 10/06/20 00:00 0.9 % Sodium Chloride Flush 3 Ml Syringe IVFLUSH 3 ml QSHIFT JUNIE Administration Time Spent With Patient Time: Total time spent is greater than 50% in coordination of care (as documented) at patient's floor/unit and/or counseling patient: Time with patient: 25 - 35 minutes Procedures Date of Service Date of Service: 10/06/20 Quality Stroke Does the patient have a stroke diagnosis?: No VTE Prior VTE?: No VTE Risk Level:: Medical - low VTE Device Contraindication: Procedure Contraindicated VTE Drug Contraindication: N/A - Med Ordered
[2020-10-06 08:00] VITALS: TEMP 36.5
[2020-10-06] MEDS: Heparin Sodium,Porcine 5,000 UNIT/ML VIAL 5000 UNIT SUBCUT ×3 (08:14→16:55)
--- NOTE | 2020-10-06 11:14 | MHC.CM.PN ---
NURSE PT SKILLED NOTE ELECTRONIC MEDICAL RECORD REVIEWED ALONG WITH CASE DISCUSSED WITH STAFF NURSE PER DOCUMENTATION ;A TRAUMATIC INJURY TO HIS RIGHT FOOT WHICH RESULTED IN A INFECTED HEMATOMA BETWEEN 4TH-5TH TOE THIS AREA WAS EXCISED, WOUND COVERED WITH SILVER CALCIUM ALIGNATE. LESION ON THE LATERAL CALF HAD ENLARGNED TO A BULLOUS LESION AND WAS EXCISED WOUND DRESSING SILVER CALCIUM ALGINATE AND DRY STERILE DRESSING.PENDING SENSITIVIES ON CULTURES , CURRENT PLAN TO CONINUE IV ZOSYN AND IV VANCOMYCIN DISCHARGE HOME NO SERVICES (PATIENT DOES NOT HAVE PCP LIVES RADHA HIS MOTHER , STAFF NURSE TO BEGIN TEACHING TO PATIENT- FOR WOUND ASSESSMENT ANS DRESSING CHANGES TRANSPORTATION FAMILY
--- NOTE | 2020-10-06 11:28 | PC.NURSE ---
Skin Assessment completed today. Patient has cellulitis/hematoma abcess on right foot, Dr. Yi performed surgery to excise hematoma. He applied silver alginate and wrapped in gauze. He also has cellulitis on lateral right calf with purulent drainage. Silver alginate applied to wound and covered with foam. No other skin issues were noted.
--- NOTE | 2020-10-06 11:38 | HO.PM.IMPN ---
Subjective Subjective Date of Service: 10/06/20 Interval History: complaining of less pain with ambulation, no fever, no chills, no acute issues overnight. 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 CVS regular rate rhythm, Respiratory lungs clear to auscultation, no respiratory distress Gastrointestinal abdomen soft, nontender, bowel sounds audible Extremities right foot wound no drainage dressing in place, right calf wound, superficial, mild induration with minimal purulent drainage Neuro nonfocal Skin no rash Objective Data Current Medications Generic Name Dose Route Start Last Admin Trade Name Freq PRN Reason Stop Dose Admin Acetaminophen 650 mg 10/03/20 23:53 Acetaminophen 325 Mg Tablet PO Q6H PRN Pain, Mild (Pain Scale 1-3) Docusate Sodium 100 mg 10/04/20 09:00 10/06/20 08:15 Docusate Sodium 100 Mg Capsule PO Not Given BID [facility] Heparin Sodium (Porcine) 5,000 unit 10/03/20 23:45 10/06/20 08:14 Heparin Sodium,Porcine 5,000 Unit/Ml Vial SUBCUT 5,000 unit Q8H JUNIE Administration Sodium Chloride 1,000 mls @ 100 mls/hr 10/03/20 23:45 10/06/20 10:24 Ns IVCONT Infused .Q10H JUNIE Infusion Piperacillin Sod/Tazobactam 50 mls @ 100 mls/hr 10/04/20 14:00 10/06/20 08:59 Sod 3.375 gm/ Sodium Chloride IV Infused Q6H JUNIE Infusion Vancomycin HCl 1,500 mg/ 500 mls @ 333.333 mls/hr 10/05/20 11:00 10/06/20 11:13 Sodium Chloride IV 333.33 mls/hr Q12H JUNIE Administration Ibuprofen 400 mg 10/03/20 23:53 10/06/20 00:00 Ibuprofen 400 Mg Tablet PO 400 mg Q6H PRN Administration Breakthrough Pain Melatonin 3 mg 10/03/20 23:53 10/04/20 22:07 Melatonin 3 Mg Tablet PO 3 mg BEDTIME PRN Administration Insomnia Pharmacy Consult 1 each 10/04/20 00:03 Consult Rx Vancomycin Dosing MISCELLANE DAILY PRN Consult order Senna 17.2 mg 10/03/20 23:53 Sennosides 8.6 Mg Tablet PO BEDTIME PRN Constipation Sodium Chloride 3 ml 10/04/20 00:00 10/06/20 08:14 0.9 % Sodium Chloride Flush 3 Ml Syringe IVFLUSH Not Given QSHIFT JUNIE Labs CBC & Chem 7: 10/05/20 09:37 10/05/20 09:37 Microbiology Microbiology Results: Microbiology 10/04/20 11:50 Gram Stain - Final Foot Right Routine Culture - Final Methicillin Res Staph Aureus 10/03/20 22:04 Blood Culture - Preliminary Blood - Venous No growth after 48 hours. 10/03/20 21:32 Blood Culture - Preliminary Blood - Venous No growth after 48 hours. Quality Stroke Does the patient have a stroke diagnosis?: No VTE Prior VTE?: No VTE Risk Level:: Medical - low VTE Device Contraindication: Procedure Contraindicated VTE Drug Contraindication: N/A - Med Ordered Assessment and Plan (1) Abscess of right foot including toes: Status: Acute Assessment and Plan: 20-year-old male who dropped a heavy object on foot and has a blistter with cellulitis as shown in picuture Right foot cellulitis/abscess Infected hematoma of the right foot--from object dropping on it/ another bullous lesion right calf. xray, CT showed no osteo, status post I&D of abscess, being followed by General surgery nonviable tissue excised today, a deeper wound was noted extending to proximal phalanx, continue dressing change as per surgery, lateral calf bullous lesion with necrotic tissue status post debridement, underlying tissue appears viable continue silver calcium alginate as per general surgeon. WBC trending down 12.7 today, no fever, blood cultures negative, wound culture grew MRSA will continue iv Vanco for now and DC IV Zosyn, plan is to discharge on doxycycline and Augmentin for 1 week will discuss with surgery regarding dispo plan and activity restrictions. Elevated BP, presently BP is normal and high was likely pain related DVT PPX:Subcu heparin Code status: Full code
[2020-10-06] MEDS: 0.9 % Sodium Chloride 1,000 ML 100 ML IVCONT (13:49)
[2020-10-06 15:07] VITALS: BP 155/65; PULSE 84; RESP 15; TEMP 36.2; O2SAT 98
[2020-10-06 19:15] VITALS: BP 139/64; PULSE 92; RESP 15; TEMP 36.8; O2SAT 98
[2020-10-06] MEDS: Docusate Sodium 100 MG CAPSULE PO (21:10)
[2020-10-06 22:43] LABS: Vancomycin Trough 9.5 mcg/mL (10.0-20.0)
--- NOTE | 2020-10-06 23:21 | PC.NURSE ---
P Kusum brunson [address] Luna notified E-awaiting new orders
[2020-10-06 23:29] VITALS: BP 132/73; PULSE 93; RESP 18; TEMP 36.4; O2SAT 98
[2020-10-07] MEDS: vancomycin HCL 1,500 MG in 0.9 % Sodium Chloride 500 ML 333.33 MG IV (00:46)
[2020-10-07] MEDS: Melatonin 3 MG TABLET PO (00:50)
[2020-10-07] MEDS: Piperacillin Sodium/Tazobactam 3.375 GM in 0.9 % Sodium Chloride 50 ML IV ×2 (03:24→08:18)
[2020-10-07 03:50] VITALS: BP 100/50; PULSE 75; RESP 16; TEMP 36.6; O2SAT 97
[2020-10-07 07:24] VITALS: BP 94/52; PULSE 84; RESP 18; TEMP 36.3; O2SAT 98
--- NOTE | 2020-10-07 10:33 | PM.DS ---
DS: Providers Provider Date of Service: 10/07/20 Date of admission: 10/03/20 23:53 Primary care physician: None Physician Consults: 10/04/20 08:10 Consult to Infectious Diseases Routine Consulting Provider: Zohra Calvillo Reason for consultation: Cellulitis of the foot 10/04/20 08:12 Consult to General Surgery [place]ine [place] [facility] [place] Reason for consultation: abscess of foot DS: Diagnosis Discharge Diagnosis (1) Abscess of right foot including toes: Status: Acute DS: Medications Discharge Medications Home Medications: Home Medications Medication Instructions Recorded Confirmed No Known Home Meds 10/04/20 10/04/20 Previous Rx's Medication Instructions Recorded amoxicillin-pot clavulanate 1 tab PO BID #14 tab 10/07/20 [Augmentin] doxycycline hyclate 100 mg PO BID #14 cap 10/07/20 DS: Summary Hospital Course Hospital Course: History of presenting illness Chief Complaint: left foot pain and swelling 20-year-old male with no significant past medical history presented to the hospital with a chief complaint of left foot pain and swelling. Patient reported a week ago he dropped a box on his foot and subsequently noted to have swelling redness and pain which has been gradually worsening; complains of chills. Present to the ER for further evaluation. Denies any nausea vomiting diarrhea. Denies any cough. Denies any urinary symptoms. Review of all other systems is negative except mentioned above ER course: Per ER team patient noted to have left foot dorsum vomiting medicine swelling in noticed blisters on the fingers; CT of the foot was ordered. Patient was given IV antibiotics. Admitted for further management. Hospital course 20-year-old male dropped a heavy object on foot and developed blood blister with surrounding erythema and diagnosed to have Right foot cellulitis/abscess related to Infected hematoma of the right foot Also noted to have another bullous lesion right calf,xray and CT scan of foot showed no osteo, but showed dorsal fluid collection and the 4th digit at the level of the proximal phalanx, status post I&D of abscess, by General surgery,and nonviable tissue surrounding wound was excised , a deeper wound was noted extending to proximal phalanx, lateral calf bullous lesion with necrotic tissue also required debridement, underlying tissue appears viable Dr. Yi recommends to continue daily dressing with silver calcium alginate covered with sterile gauze, since WBC trending down , blood cultures negative, wound culture grew MRSA, patient treated iv Vanco and IV Zosyn, and now being discharged on doxycycline and Augmentin for 1 week, he has been recommended to follow-up with General surgery in 1 week, he can return to work after follow-up from General surgery as per the recommendation. Time Spent with Patient Time attestation: Total time spent providing and/or coordinating discharge services: Discharge coordination time: Greater than 30 minutes Quality: Stroke Does the patient have a stroke diagnosis?: No Physical Exam Vital Signs: Vital Signs: Last Vital Signs Temp 97.3 F 10/07/20 07:24 Pulse 84 10/07/20 07:24 Resp 18 10/07/20 07:24 BP 94/52 L 10/07/20 07:24 Pulse Ox 98 10/07/20 07:24 Body Mass Index 35.0 General no acute distress. CVS regular rate rhythm, Respiratory lungs clear to auscultation, no respiratory distress Gastrointestinal abdomen soft, nontender, bowel sounds audible Extremities right foot wound no drainage dressing in place, right calf wound, superficial, no drainage. Neuro nonfocal Skin no rash DS: Data Data Completed and Pending Labs on day of discharge: Laboratory Results - last 24 hr 10/06/20 22:05 Vancomycin Trough 9.5 L Preliminary micro results at discharge 10/03/20 22:04 Blood Culture - Preliminary Blood - Venous No growth after 48 hours. 10/03/20 21:32 Blood Culture - Preliminary Blood - Venous No growth after 48 hours. Discharge Plan Discharge Patient Disposition: Home, Self-Care Discharge Diagnosis: Right foot cellulitis/abscess Referrals: Physician,None [Primary Care Provider] - 1 Week Discharge Medications: New doxycycline hyclate 100 mg capsule 100 mg PO BID Qty: 14 RF: 0 amoxicillin-pot clavulanate [Augmentin] 875-125 mg tablet 1 tab PO BID Qty: 14 RF: 0 No Action No Known Home Meds RF: 0 Discharge Orders: Discharge Order (Routine); Ordered 10/07/20 Ordered By: Cal Lu Diet: advance to usual diet Activity on Discharge: As tolerated Stand Alone Forms: Patient Portal Discharge page, Work/School Release Care Plan Goals: Right foot wound and abscess, status post I&D, return to check with any worsening redness, pain, fever or swelling. Health Concerns: Right foot wound, continue wound dressings with silver calcium alginate covered with dry sterile gauze to both right dorsum of foot and to the right lateral calf wound daily. Plan of Treatment: Outpatient follow-up with Dr. Yi general surgery next week call office to make appointment, follow up with PCP Assessment: as above
--- NOTE | 2020-10-07 10:40 | MHC.CM.PN ---
PT CLEARED TO DC HOME TODAY WITH NO SERVICES. PT TO SELF ARRANGE TRANSPORT
== END 2020-10-07 11:13 | disposition home or self-care (01) | DRG 571 ==
LOC: HO.ED 10-04 00:34 → HO.S3 10-04 02:02
PROVIDERS: Internal Medicine; Nurse Practitioner Family; Admitting Provider Hospitalist; Emergency Provider Emergency Medicine; Visit Provider Hospitalist
DX: L02.611 Cutaneous abscess of right foot (principal); L03.116 Cellulitis of left lower limb; B95.62 Methicillin resistant Staphylococcus aureus infection as the cause of diseases classified elsewhere; L02.415 Cutaneous abscess of right lower limb; Z20.822 Contact with and (suspected) exposure to COVID-19; Z79.899 Other long term (current) drug therapy
CPT/HCPCS: 36415; 73630; 73701; 80048; 80202; 83605; 85025; 85027; 87040; 87071; 87077; 87186; 87205; 87635; 99225; 99285; J0696; J1200; J2543; J3370; Q9967

== ENCOUNTER → 2020-10-19 08:52 | Outpatient (BNVA) | payer OTHER, SELFPAY | PROVIDERS: Visit Provider Surgery | DX: L02.611 Cutaneous abscess of right foot (principal) | CPT/HCPCS: 99212 ==

== ENCOUNTER 2025-02-18 19:51 | Emergency (ER) | payer BC, SELFPAY ==
--- NOTE | ~2025-02-18 | CT_ITS ---
CLINICAL HISTORY: Periumbilical abdominal pain *PT NAUSEOUS FROM IV CONTRAST, SOME MOTION* CT abdomen and pelvis with contrast Comparison: None provided Findings: Lung bases clear. No acute bony abnormalities. Mildly dilated small bowel in left upper quadrant. Mild small-bowel wall thickening also noted. Probable acute enteritis pattern. Liver and spleen within normal limits. Pancreas and adrenal glands unremarkable. Gallbladder is within normal limits. No significant focal renal abnormalities. No renal stones or hydronephrosis. Abdominal aorta is normal in caliber. No free fluid or adenopathy in the pelvis. No diverticulitis. Appendix unremarkable. Impression: Probable acute enteritis pattern left upper quadrant This document has been electronically signed by: Ty Phillips MD on 02/18/2025 22:45:18
[2025-02-18 19:57] VITALS: BP 142/73; PULSE 95; RESP 14; TEMP 36.6; O2SAT 100; BMI 36.3
--- NOTE | 2025-02-18 20:02 | ED.GENADULT ---
HPI - General Adult General Chief complaint: Abdominal Pain Stated complaint: hernia-stomach pain Time Seen by Provider: 02/18/25 20:56 History of Present Illness ED Provider: Marylou Stahl HPI narrative: 24-year-old male with a medical history that is significant for prior cellulitis of the left extremity, periumbilical hernia, presents to the ED for evaluation reporting concern for periumbilical abdominal pain that began acutely yesterday evening around 10:00 p.m. after lifting heavy object at work. He denies any ripping or tearing sensation, no pain in the groin, low back or flank. Reports pain is localized to the mario umbilical region, it alleviates when lying flat. It is aggravated by movement, occasionally by eating. Denies any nausea or vomiting, diarrhea or constipation. No fever, chills. No chest pain or pressure, shortness of breath. Pain is described as stabbing and shooting when it is occurring, 10 out of 10. Related Data Previous Rx's ?Medication ?Instructions ?Recorded amoxicillin 875 mg-potassium 1 tab PO BID #14 tabs 10/07/20 clavulanate 125 mg tablet (Augmentin) doxycycline hyclate 100 mg capsule 100 mg PO BID #14 caps 10/07/20 silver-calcium alginate 4 1/4 X 4 10 ea topical DAILY #10 ea 10/07/20 1/4 bandage Allergies Allergy/AdvReac Type Severity Reaction Status Date / Time pollen extracts (POLLEN) Allergy Unknown UNKNOWN Verified 02/18/25 19:59 Review of Systems Review of Systems: ROS is otherwise negative unless mentioned in HPI. [facility] Past Medical History Medical History (Updated 02/20/25 @ 00:00 by Tona Meier) Patient denies medical problems Surgical History (Updated 05/27/24 @ 14:30 by Melissa Camarillo) History of tonsillectomy and adenoidectomy Family History Family History (System 05/27/24 @ 14:30 by Melissa Camarillo) Maternal Grandmother Cervical cancer Social History Social History (System 05/27/24 @ 14:30 by Melissa Camarillo) Household Members: Family Housing: House Do you presently have visiting nurse or other home services: No Alcohol intake: current Alcohol intake frequency: holidays/special occasions only Patient Tobacco Use Status: Never used Tobacco Second Hand Smoke Exposure: No Substance Use Type: Marijuana service: No Current occupational status: employed Physical Exam ED Exam Exam: Nursing notes and vital signs reviewed. Constitutional: Well-appearing, NAD. Alert. Oriented X3. Eyes: EOMI. ENT: Pharynx normal. Neck: Normal inspection. Neck supple. CVS: Normal heart rate and rhythm. Pulses normal. Respiratory: No respiratory distress. Breath sounds normal. Abdomen: Soft, nondistended. Tenderness to the periumbilical region of the abdomen. No CVA tenderness bilaterally. Skin: Skin warm and dry. Normal skin color. Extremities: No lower extremity edema. Neuro: Oriented X 3. No motor deficit. Vital Signs: Vital Signs - 24 hr 02/18/25 19:57 Temperature 97.9 F Pulse Rate 95 Respiratory Rate 14 Blood Pressure 142/73 H Pulse Oximetry 100 Oxygen Delivery Method Room Air BMI result Body Mass Index 36.3 Course Course Course Narrative: RME: 24 year male presents to ED for sharp mid abdominal pain umbilical area where he has a umbilical hernia. Patient states he was doing heavy lifting yesterday and since then has had pain. Labs ordered Medications Administered Discontinued Medications Generic Name Dose Route Start Last Admin Trade Name Freq PRN Reason Stop Dose Admin Sodium Chloride 1,000 mls @ 999 mls/hr 02/18/25 21:02 02/18/25 22:30 Ns IV 02/18/25 22:02 Infused .Q1H1M ONE Infusion Ceftriaxone Sodium 1 gm/ 50 mls @ 100 mls/hr 02/18/25 21:04 02/18/25 21:58 Sodium Chloride IV 02/18/25 21:33 Infused ONCE ONE Infusion Metronidazole 500 mg in 100 mls @ 100 mls/hr 02/18/25 21:04 02/18/25 22:39 Flagyl IV 02/18/25 22:03 Infused ONCE ONE Infusion Iohexol 100 ml 02/18/25 21:46 02/18/25 21:46 Iohexol 350 Mg/Ml 100 Ml Infus..Btl IV 02/18/25 21:47 85 ml ONCE ONE Administration Ketorolac Tromethamine 15 mg 02/18/25 22:58 02/18/25 23:26 Ketorolac Tromethamine 15 Mg/Ml Vial IVPUSH 02/18/25 22:59 15 mg ONCE ONE Administration Morphine Sulfate 4 mg 02/18/25 21:02 02/18/25 21:27 Morphine Sulfate 4 Mg/Ml Cartridge IVPUSH 02/18/25 21:03 4 mg ONCE ONE Administration Protocol Ondansetron HCl 4 mg 02/18/25 21:02 02/18/25 21:28 Ondansetron Hcl 4 Mg/2 Ml Vial IVPUSH 02/18/25 21:03 4 mg ONCE ONE Administration Medical Decision Making Medical Decision Making [facility] Narrative: 1903-- upon my initial assessment of this patient, he had lab work that was done in triage. His white blood cell count is concerning we high at 19.2, though I am currently pending a CMP, liver panel. He has tenderness to the periumbilical region on examination, which occurred after lifting heavy object yesterday evening. Possibly underlying hernia versus appendicitis, we will empirically treat with antibiotics Rocephin, Flagyl have been ordered. We will also obtain lactic, and will administered IV fluid bolus. I have ordered CT imaging of the abdomen as well, currently pending. 2251-- CT shows evidence of likely enteritis, no acute infectious pathology. Currently pending urinalysis, lab work was otherwise reassuring. Lactic acid is flat. No concern for sepsis. We will p.o. trial. 2350-- tolerating p.o., reports feeling much better. We would like to be discharged home. He was not able to provide a urinalysis sample while in the ED today. Given he has no urinary complaints, we will proceed with discharge. Provided return precautions to the ED, patient expressed understanding. Differential Diagnosis Differential Diagnoses: The differential diagnosis associated with the presentation includes appendicitis, enteritis, hernia, bowel obstruction, viral illness Admission/Observation Consideration of admission/observation: Escalation of care including admission/observation considered (not indicated) Lab Data [facility] Lab Attestation statement: I reviewed the patient's lab results. (Leukocytosis at 19.2) 02/18/25 20:22 02/18/25 20:22 Labs: Lab Results 02/18/25 02/18/25 Range/Units 20:22 21: WBC 19.2 H (4.8-10.8) X10*3/uL RBC 5.35 (4.60-5.80) X10*6/uL Hgb 14.4 (14.0-18.0) g/dl Hct 45.0 (42.0-52.0) % MCV 84.1 (80.0-98.0) fL MCH 26.9 L (27.0-33.0) pg MCHC 32.0 (31.0-36.0) g/dl RDW 13.9 (11.0-16.0) % Plt Count 467 H (160-400) X10*3/uL MPV 8.7 L (9.4-12.4) fL Immature Gran % (Auto) 0.6 H (0.0-0.4) % Neut % (Auto) 68.2 (45-73) % Lymph % (Auto) 23.0 (20-40) % [place] % (Auto) 6.2 (2-11) % Eos % (Auto) 1.7 (0-4) % Baso % (Auto) 0.3 (0-2) % Lymph # (Auto) 4.4 (1.2-4.9) X10*3/uL Scre[place] # (Auto) 1.2 (0.1-1.2) X10*3/uL Eos # (Auto) 0.3 (0.0-0.4) X10*3/uL Baso # (Auto) 0.1 (0.0-0.2) X10*3/uL Abs Immat Gran (auto) 0.11 H (0.00-0.03) X10*3/uL Absolute Neuts (auto) 13.1 H (2.0-8.3) x10*3/uL Absolute Nucleated RBC 0.000 (0.0-0.012) X10*3/uL Nucleated RBC % (auto) 0.0 (0.0-0.2) /100WBC PT 12.5 (11.2-13.5) SEC INR 1.0 (0.9-1.1) Sodium 143 (135-145) mmol/L Potassium 3.5 (3.3-5.1) mmol/L Chloride 108 (96-108) mmol/L Carbon Dioxide 28 (22-29) mmol/L Anion Gap 11 L (12-20) BUN 16 (9-16) mg/dL Creatinine 0.81 (0.5-1.4) mg/dL Estim Creat Clear Calc 150.8 Estimated GFR > 60 Random Glucose 96 (60-115) mg/dL Lactic Acid 0.8 (0.5-2.0) mmol/L Calcium 9.3 (8.4-10.2) mg/dL Total Bilirubin 1.1 H (0.0-1.0) mg/dL Direct Bilirubin 0.3 (0.0-0.5) mg/dL AST 33 (5-37) U/L ALT 33 (0-40) U/L Alkaline Phosphatase 134 H (39-117) U/L Total Protein 7.5 (6.5-8.0) g/dL Albumin 4.5 (3.5-5.0) g/dL Lipase 15 (8-78) U/L Independent Interpretation I performed an independent interpretation of an: CT Scan Interpretation: I have reviewed the patient's imaging and agree with the radiologist's findings. Radiology Impression Discussion of test interpretation with radiology: I have reviewed the radiologist's reading. Radiologist Impression: CT A/P: Impression: Probable acute enteritis pattern left upper quadrant. Independent Historian Clinical information obtained from an independent historian. History obtained from or confirmed by: Spouse (Girlfriend via phone) External Record Review External record reviewed: Outpatient record, Prior outpatient labs and Prior outpatient radiology Chronic Conditions None Discharge Plan Discharge Clinical Impression: Abdominal pain, acute, periumbilical Patient Disposition: Home, Self-Care Instructions: Abdominal Pain (ED) Additional Instructions: As we discussed, your workup here was overall reassuring. Your white blood cell count level was high, and we gave you IV antibiotics. However, the CT scan does not show any infectious pathology. It appears you have likely a viral enteritis, meeting inflammation of the colon. You likely also had some abdominal pain due to lifting a heavy object and strain of the abdominal muscles. You may use [id number] Tylenol, ibuprofen to help with the discomfort. With any worsening complaints, or pain that is not resolving, nausea or vomiting, fever or chills please present back to the ED for reassessment. Follow up with your primary care provider within 1 week. Prescriptions: No Action doxycycline hyclate 100 mg capsule 100 mg PO BID Qty: 14 0RF amoxicillin-pot clavulanate [Augmentin] 875-125 mg tablet 1 tab PO BID Qty: 14 0RF silver-calcium alginate 4 1/4 X 4 1/4 bandage 10 ea topical DAILY Qty: 10 0RF Rx Instructions: Apply to right foot and leg wound daily as directed [place] [facility] [place] Group, Family Practice] Physician,None [Primary Care Provider, Medical] Stand Alone Forms: Work/School Release Interventions: ED Discharge Assessment Last Done: 02/19/25 00:50 Discharge Date/Time: 02/19/25 00:51 Print Language: Slovak
[2025-02-18 20:49] LABS: Hematocrit 45.0 % (42.0-52.0); Hemoglobin 14.4 g/dl (14.0-18.0); Imm Gran Abs Auto 0.11 X10*3/uL (0.00-0.03); Imm Gran Pct Auto 0.6 % (0.0-0.4); Lymphocytes Absolute Auto 4.4 X10*3/uL (1.2-4.9); MANUAL DIFF FLAG NO; Mean Corpuscular HGB Conc 32.0 g/dl (31.0-36.0); Mean Corpuscular Hemoglobin 26.9 pg (27.0-33.0); Mean Corpuscular Volume 84.1 fL (80.0-98.0); NRBC Abs Auto 0.000 X10*3/uL (0.0-0.012); NRBC Pct Auto 0.0 /100WBC (0.0-0.2); Platelet Count 467 X10*3/uL (160-400); Red Blood Count 5.35 X10*6/uL (4.60-5.80); White Blood Count 19.2 X10*3/uL (4.8-10.8)
--- OUTSIDE RECORDS SUMMARY | 2025-02-18 20:54 | XMS_ITS | Encounter Summary ---
Author Organization [facility] Address [address] [place] [address] Phone Care Team Providers Care Seasonal Driver Name Role Phone Jamarcus Montoya MD Primary Care Provider [phone] Encounter Details Date Type Department Care Team (Late st Contact Info) Description 02/09/2016 Documentation [facility] [place] Family Medicine [address] [place] [address] Family Medicine, Physician [address] [place], [place] [address] Social History Tobacco Use Types Packs/Day Years Used Date Smoking Tobacco: Never Comments:Never smoker Sex and Gender Information Value Date Recorded Sex Assigned at Male 03/03/2019 2:02 PM EST Legal Sex Male 5:14 PM EDT Gender Identity Male 03/03/2019 2:02 PM EST Sexual Orientation Straight 03/28/2020 11 :23 AM EST documented as of this encounter Plan of Treatment Not on file documented as of this encounter Visit Diagnoses Not on filedocumented in this encounter Care Teams Seasonal Driver Relationship Specialty Start Date End Date Jamarcus Montoya MD [address] [place] [address] [place] [address] PCP - General 11/08/16 07/10/22 documented as of this encounter
--- OUTSIDE RECORDS SUMMARY | 2025-02-18 20:54 | XMS_ITS | Encounter Summary ---
Author Organization [facility] Address [address] [place] [address] Phone Care Team Providers Care Principal Database Developer Name Role Phone Jamarcus Montoya MD Primary Care Provider [phone] Encounter Details Date Type Department Care Team (Late st Contact Info) Description 02/28/2016 Documentation [facility] [place] Family Medicine [address] [place] [address] Family Medicine, Physician [address] [place], [place] [address] Social History Tobacco Use Types Packs/Day Years [...] on filedocumented in this encounter Care Teams Principal Database Developer Relationship Specialty Start Date End Date Jamarcus Montoya MD [address] [place] [address] [place] [address] PCP - General 11/08/16 07/10/22 documented as of this encounter
--- OUTSIDE RECORDS SUMMARY | 2025-02-18 20:54 | XMS_ITS | Encounter Summary ---
Author Organization [facility] Address [address] [place] [address] Phone Care Team Providers Care Panelboard Assembler Name Role Phone Jamarcus Montoya MD Primary Care Provider [phone] Encounter Details Date Type Department Care Team (Late st Contact Info) Description 02/12/2016 Documentation [facility] [place] [address] [place] [address] Family Medicine, Physician [address] [place], [place] [id number] Social History Tobacco Use Types Packs/Day Years [...] on filedocumented in this encounter Care Teams Panelboard Assembler Relationship Specialty Start Date End Date Jamarcus Montoya MD [address] [place] [address] [place] [address] PCP - General 11/08/16 07/10/22 documented as of this encounter
--- OUTSIDE RECORDS SUMMARY | 2025-02-18 20:54 | XMS_ITS | Encounter Summary ---
Author Organization [facility] Address [address] [place] [address] Phone Care Team Providers Care Crowning Hammer Operator Name Role Phone Jamarcus Montoya MD Primary Care Provider [phone] Encounter Details Date Type Department Care Team (Late st Contact Info) Description 11/14/2016 Conversion Encounter [facility] [place] [address] [place] [address] Social History Tobacco Use Types Packs/Day Years [...] on filedocumented in this encounter Care Teams Crowning Hammer Operator Relationship Specialty Start Date End Date Jamarcus Montoya MD [address] [facility] [place] [address] PCP - General 11/08/16 07/10/22 documented as of this encounter
--- OUTSIDE RECORDS SUMMARY | 2025-02-18 20:54 | XMS_ITS | Encounter Summary ---
Author Organization [facility] Address [address] [place] [address] Phone Care Team Providers Care Film Painter Name Role Phone Jamarcus Montoya MD Primary Care Provider [phone] Encounter Details Date Type Department Care Team (Late st Contact Info) Description 06/04/2012 Conversion Encounter [facility] - [address] [place] [address] Social History Tobacco Use Types Packs/Day Years Used Date Smoking Tobacco: Never Assessed Sex and Gender Information Value Date Recorded Sex Assigned at Male 03/03/2019 2:02 PM EST Legal Sex Male 5:14 PM EDT Gender Identity Male 03/03/2019 2:02 PM EST Sexual Orientation Straight 03/28/2020 11 :23 AM EST documented as of this encounter Plan of Treatment Not on file documented as of this encounter Visit Diagnoses Not on filedocumented in this encounter Care Teams Film Painter Relationship Specialty Start Date End Date Jamarcus Montoya MD [address] [place] [address] [place] [address] PCP - General 11/08/16 07/10/22 documented as of this encounter
--- OUTSIDE RECORDS SUMMARY | 2025-02-18 20:54 | XMS_ITS | Clinical Summary ---
Author Organization [facility] Address [address] [place] [address] Phone Care Team Providers Care Flat Optical Element Maker Name Role Phone Unavailable Primary Care Provider Unavailabl e Allergies No known active allergies Medications tretinoin (RETIN-A) 0.1 % creamIndications :Acne vulgaris Apply to affected area after gentle cleansing -- start twice weekly and increase to daily or every other day as tolerated. 45 g 5 7 Active Additional Information Patient not taking.Reported on 01/04/2019 ibuprofen 200 MG capsuleIndicatio ns:Fever, unspecified fever cause Take 2 capsules (400 mg total) by mouth every 6 (six) hours as needed for pain or fever (For fever or pain). 120 capsule 8 Active Additional Information Patient not taking.Reported on 03/28/2020 MELATONIN PO Take 3 mg by mouth nightly. Active Active Problems Problem Noted Date Diagnosed Date ADHD (attention deficit hype ractivity disorder), predominantly hyperactive impulsive type 02/09/2016 Resolved Problems Problem Noted Date Diagnosed Date Resolved Date Mild intermittent asthma without complication 02/09/20 16 03/03/2019 Immunizations Immunization Administration Dates Next Due DTP 1999 DTaP 09/01/2003,12/08/2002,1999 HPV Vaccine 9 Valent 01/28/2014,01/06/20 13,11/02/2012,02/04 HPV, Quadrivalent 01/28/2014,01/05/2013,11/03/19 13 Hep A, ped/adol 02/04/2011,12/18/2009 Hep B, ped/adol 03/03/2000,1999,1999 HiB 12/02/2000, 0,1999,10/30 IPV 09/01/2003, 0,1999,10/30 Influenza, injectable, quadrivalent 01/28/2014 Influenza, injectable, quadr ivalent, preservative free 03/28/2020,03/03/2019,03/13/2017,02/08,01/28/2014,02/04/2011 MMR 09/01/2003,09/01/2000 Meningococcal Conj (Menactra) MCV4P 02/04/2011 Tdap 12/18/2010 Varicella 03/10/2012,09/01/2000 Family History Medical History Relation Name Comments No Known Problems Father yareli Diabetes Maternal Grandfather Cervical cancer Maternal Grandmother Asthma Mother edwin Colon cancer Other Hypertension Other Prostate cancer Other Emphysema Paternal Grandfather Lung cancer Paternal Grandfather ADD / ADHD Sister ayalis Asthma Sister ayalis Relation Name Status Comments Father yareli Alive Father: Asthma Maternal Grandfather Materna l grandfather: Diabetes mellitus type 2 Maternal Grandmother Materna l grandmother: Cancer, cervical Mother edwin Alive Mother: Asthma Other Close relative: Cancer, colon, Hypertension, Cancer, prostate, Obesity Paternal Grandfather Alive Sister ayalis Alive Sister: ADD/ADH D, Asthma Social History Tobacco Use Types Packs/Day Years Used Date Smoking Tobacco: Never Smokeless Tobacco: Never Comments:Never smoker Hunger/Food Answer Date Recorded In the last 12 months, did y ou or your family ever eat less than you felt you should because there wasn't enough money for food? No 03/28/2020 Stable Housing Answer Date Recorded Are you worried that in the next 2 months you may not have stable housing? No 03/28/2020 Transportation Concerns Answer Date Rec orded In the last 12 months, have you or your family ever had to go without healthcare because you didn't have a way to get there? No 03/28/2020 Hazards in Home Answer Date Recorded Think about the place you li ve. Do you have problems with any of the following? Pests (mice or roaches), mold, no/not working smoke detectors, water leaks, no window guards. No 2019 Financing Utilities Answer Date Recorde d In the last 12 months, has t he electric, gas, oil, or water company threatened to shut off your services in your home? No 03/28/2020 Safety at Home Answer Date Recorded Are you or your family worried about feeling saf e in your home? No 03/28/2020 Outside Support Answer Date Recorded Do you feel that you need mo re support from other people or programs to help you care for yourself or your family? No 03/28/2020 Understanding Health Concerns Answer Da te Recorded Do you need help understandi ng your or your child's healthcare needs (diagnosis, medications, plan, etc.)? No 03/28/2020 Financing Health Concerns Answer Date R ecorded In the last 12 months, was t here a time when your child needed to see a doctor or get medications or supplies but could not because of cost? No 03/28/2020 Missing School or Work Answer Date Nahid rded Did you or your child miss s chool or work because of a health problem that could have been avoided? No 03/28/2020 Sex and Gender Information Value Date Recorded Sex Assigned at Male 03/03/2019 2:02 PM EST Legal Sex Male 5:14 PM EDT Gender Identity Male 03/03/2019 2:02 PM EST Sexual Orientation Straight 03/28/2020 11 :23 AM EST Last Filed Vital Signs Vital Sign Reading Time Taken Comments Blood Pressure 114/74 03/28/2020 10:43 AM EST Pulse 73 03/28/2020 10:43 AM EST Temperature 35.6 C (96 F) 03/28/2020 10:43 AM EST Respiratory Rate - - Oxygen Saturation - - Inhaled Oxygen Concentration - - Weight 91.2 kg (201 lb) 03/28/2020 10:43 AM EST Height 161.9 cm (5' 3.75 ) 03/28/2020 10:[address] Body Mass Index 34.77 03/28/2020 10:43 AM EST Plan of Treatment Health Maintenance Due Date Last Done Comments DTaP,Tdap,and Td Vaccines (6 - Td or Tdap) 12/18/2020 12/18/2010, 09/01/2003, 12/08/2002, Additional history exists Influenza Vaccines (#1) 2024 03/28/20, 03/03/2019, 03/13/2017, Additional history exists COVID-19 Vaccine ( season) 2024 10/27/2020, 09/08/2020 Hepatitis B Vaccines Completed 03/03/2000, 1999, 1999 HIB Vaccines Completed 12/02/2000, 06/1999, 1999, Additional history exists IPV Vaccines Completed 09/01/2003, 06/1999, 1999, Additional history exists MMR Vaccines Completed 09/01/2003, 09/01/2000 Hepatitis A Vaccines Completed 02/04/2011, 12/19/19 10 Meningococcal Vaccine Aged Out 02/04/2011 No taryn andres eligible based on patient's age to complete this topic Varicella Vaccines Completed 03/10/2012, 09/01/2000 HPV Vaccines Completed 01/28/2014, 12/31, 01/05/2013, Additional history exists Men B Vaccine Aged Out No longer elig ible based on patient's age to complete this topic Pneumococcal Vaccine Aged Out No long er eligible based on patient's age to complete this topic
--- OUTSIDE RECORDS SUMMARY | 2025-02-18 20:54 | XMS_ITS | Encounter Summary ---
Author Organization [facility] Address [address] [place] [address] Phone Care Team Providers Care Call Or Contact Centre Manager Name Role Phone Jamarcus Montoya MD Primary Care Provider Encounter Details Date Type Department Care Team (Late st Contact Info) Description 02/12/2016 Documentation [facility] [place] Family Medicine [address] [place] [address] Family Medicine, Physician [address] [place], [place] [address] Social History Tobacco Use Types Packs/Day Years [...] on filedocumented in this encounter Care Teams Call Or Contact Centre Manager Relationship Specialty Start Date End Date Jamarcus Montoya MD [address] [place] [address] [place] [address] PCP - General 11/08/16 07/10/22 documented as of this encounter
--- OUTSIDE RECORDS SUMMARY | 2025-02-18 20:54 | XMS_ITS | Encounter Summary ---
Author Organization [facility] Address [address] [place] [address] Phone Care Team Providers Care Continuous Miner Name Role Phone Jamarcus Montoya MD Primary Care Provider [phone] Encounter Details Date Type Department Care Team (Late st Contact Info) Description 02/12/2016 [place]ation [facility] [facility] [place] [address] [place] [address] Family Medicine, Physician [address] [place], [place] [address] Social History Tobacco Use Types Packs/Day Years [...] on filedocumented in this encounter Care Teams Continuous Miner Relationship Specialty Start Date End Date Jamarcus Montoya MD [address] [place] [address] [place] [address] PCP - General 11/08/16 07/10/22 documented as of this encounter
--- OUTSIDE RECORDS SUMMARY | 2025-02-18 20:54 | XMS_ITS | Encounter Summary ---
Author Organization [facility] Address [address] [place] [address] Phone Care Team Providers Care Digital Ad Trafficker Name Role Phone Jamarcus Montoya MD Primary Care Provider [phone] Encounter Details Date Type Department Care Team (Late st Contact Info) Description 02/12/2016 Documentation [facility] [place] Family Medicine [address] [place] [address] Family Medicine, Physician [address] [place], [place] [phone] Social History Tobacco Use Types Packs/Day Years [...] on filedocumented in this encounter Care Teams Digital Ad Trafficker Relationship Specialty Start Date End Date Jamarcus Montoya MD [address] [place] [address] [place] [address] PCP - General 11/08/16 07/10/22 documented as of this encounter
--- OUTSIDE RECORDS SUMMARY | 2025-02-18 20:54 | XMS_ITS | Encounter Summary ---
Author Organization [facility] Address [address] [place] [address] Phone Care Team Providers Care Starch Dumper Name Role Phone Jamarcus Montoya MD Primary Care Provider [phone] Encounter Details Date Type Department Care Team (Late st Contact Info) Description 02/12/2016 Documentation [facility] [place] Family Medicine [address] [place] [address] Family Medicine, Physician [address] [place], [place] [address] Social History Tobacco Use Types Packs/Day Years [...] on filedocumented in this encounter Care Teams Starch Dumper Relationship Specialty Start Date End Date Jamarcus Montoya MD [address] [place] [address] [place] [address] PCP - General 11/08/16 07/10/22 documented as of this encounter
--- OUTSIDE RECORDS SUMMARY | 2025-02-18 20:54 | XMS_ITS | Encounter Summary ---
Author Organization [facility] Address [address] [place] [address] Phone Care Team Providers Care Senior Security Analyst Name Role Phone Jamarcus Montoya MD Primary Care Provider [phone] Encounter Details Date Type Department Care Team (Late st Contact Info) Description 02/12/2016 Documentation [facility] [place] [address] [place] [address] Family Medicine, Physician [address] [place], [place] [id number] Social History Tobacco Use Types Packs/Day Years [...] on filedocumented in this encounter Care Teams Senior Security Analyst Relationship Specialty Start Date End Date Jamarcus Montoya MD [address] [place] [address] [place] [address] PCP - General 11/08/16 07/10/22 documented as of this encounter
--- OUTSIDE RECORDS SUMMARY | 2025-02-18 20:54 | XMS_ITS | Encounter Summary ---
Author Organization [facility] Address [address] [place] [address] Phone Care Team Providers Care Supervisor Data Processing Name Role Phone Jamarcus Montoya MD Primary Care Provider [phone] Encounter Details Date Type Department Care Team (Late st Contact Info) Description 02/12/2016 Documentation [facility] [place] Family Medicine [address] [place] [address] Family Medicine, Physician [address] [place], [place] [address] Social History Tobacco Use Types Packs/Day Years [...] on filedocumented in this encounter Care Teams Supervisor Data Processing Relationship Specialty Start Date End Date Jamarcus Montoya MD [address] [place] [address] [place] [address] PCP - General 11/08/16 07/10/22 documented as of this encounter
--- OUTSIDE RECORDS SUMMARY | 2025-02-18 20:54 | XMS_ITS | Encounter Summary ---
Author Organization [facility] Address [address] [place] [address] Phone Care Team Providers Care Pipe Supervisor Name Role Phone Jamarcus Montoya MD Primary Care Provider [phone] Encounter Details Date Type Department Care Team (Late st Contact Info) Description 02/12/2016 [place] [facility] [place] [address] [place] [address] Family Medicine, Physician [address] [place], [place] [address] Social History Tobacco Use Types Packs/Day Years [...] on filedocumented in this encounter Care Teams Pipe Supervisor Relationship Specialty Start Date End Date Jamarcus Montoya MD [address] [place] [address] [place] [address] PCP - General 11/08/16 07/10/22 documented as of this encounter
[2025-02-18 21:03] LABS: Alanine Aminotransferase 33 U/L (0-40); Albumin Level 4.5 g/dL (3.5-5.0); Alkaline Phosphatase 134 U/L (39-117); Anion Gap 11 (12-20); Aspartate Amino Transferase 33 U/L (5-37); Blood Urea Nitrogen 16 mg/dL (9-16); Calcium 9.3 mg/dL (8.4-10.2); Carbon Dioxide 28 mmol/L (22-29); Chloride 108 mmol/L (96-108); Creatinine Clr Calc Pharmacy 150.8; Estimated Glomerular Filt Rate > 60; Lipase 15 U/L (8-78); Potassium 3.5 mmol/L (3.3-5.1); Sodium 143 mmol/L (135-145); Total Protein 7.5 g/dL (6.5-8.0)
[2025-02-18 21:32] LABS: INTERNATIONAL NORM RATIO 1.0 (0.9-1.1); Prothrombin Time 12.5 SEC (11.2-13.5)
[2025-02-18] MEDS: metroNIDAZOLE/NS 500 MG/100 ML PIGGYBACK 100 MG IV (21:39)
[2025-02-18] MEDS: iohexoL 350 MG/ML 100 ML INFUS..BTL IV (21:46)
[2025-02-19 00:31] VITALS: BP 138/82; PULSE 95; RESP 18; TEMP 36.7; O2SAT 96
[2025-02-19 00:50] VITALS: BP 138/82; PULSE 95; RESP 18; TEMP 36.7; O2SAT 96
== END 2025-02-19 00:51 | disposition home or self-care (01) ==
PROVIDERS: Nurse Practitioner; Physician Assistant; Emergency Provider Emergency Medicine
DX: R10.33 Periumbilical pain (principal); R10.20 Pelvic and perineal pain unspecified side; R11.0 Nausea; Z79.899 Other long term (current) drug therapy
CPT/HCPCS: 36415; 74177; 80053; 82248; 83605; 83690; 85025; 85610; 96361; 96365; 96366; 96367; 96375; 99285; J0696; J1836; J1885; J2270; J2405; Q9967

== ENCOUNTER → 2025-02-18 21:02 | Outpatient (BNV) | payer BC, SELFPAY | PROVIDERS: Visit Provider Radiology Diagnostic Radiology | DX: R10.33 Periumbilical pain (principal) | CPT/HCPCS: 74177 ==